=== PATIENT | male | born 1980 | race Caucasian/White ===

== ENCOUNTER 2018-08-16 13:14 | Inpatient (IN) ==
[2018-08-16] MEDS ORDERED: Succinylcholine Inj 200 MG/10 ML Vial ONE (13:15)
[2018-08-16] MEDS ORDERED: Etomidate Inj 40 MG/20 ML Vial IV.PUSH ONE (13:16)
[2018-08-16 13:29] VITALS: O2SAT 100
--- NOTE | 2018-08-16 13:39 | CT ---
EXAM DATE: 08/16/2018 1:25 PM EDT AGE/SEX: 38 years / Male INDICATIONS: Trauma, found unresponsive CLINICAL DATA: This is the patient's initial encounter. Patient reports that signs and symptoms have been present for 1 day and indicates a pain score of 10/10. MEDICAL/SURGICAL HISTORY: Non-responsive. Non-responsive. RADIATION DOSE: 56.35 CTDI (mGy) COMPARISON: No prior exams available for comparison. TECHNIQUE: CT of the head without contrast. Using automated exposure control and adjustment of the mA and/or kV according to patient size, radiation dose was kept as low as reasonably achievable to ob tain optimal diagnostic quality images. DICOM format image data is available electronically for revi ew and comparison. FINDINGS: There is a large acute high density intraparenchymal hemorrhage centered in the left frontal lobe camille suring up to 4.2 x 4.6 cm in diameter. There is extension into the intraventricular system with high density hemorrhage throughout the lateral ventricles, third ventricle and fourth ventricle. There is also subarachnoid hemorrhage over the left parietal convexities. There is dilatation of the ventricul ar system. There is mass effect and mild midline shift to the right measuring approximately 4 to 5 mm . The bone windows demonstrate no abnormality. CONCLUSION: 1. Large intraparenchymal hemorrhage intraventricular spread of hemorrhage and mild subarachnoid hem orrhage. Etiologies include middle cerebral artery aneurysm given the location of the hemorrhage. Findings called to Dr. Marquez in the emergency room at 1333 hours. Electronically signed by: Tien Mora MD 08/16/2018 1:37 PM EDT
--- NOTE | 2018-08-16 13:43 | CT ---
EXAM DATE: 08/16/2018 1:25 PM EDT AGE/SEX: 38 years / Male INDICATIONS: Trauma, Patient found unresponsive CLINICAL DATA: This is the patient's initial encounter. Patient reports that signs and symptoms have been present for 1 day and indicates a pain score of Nonresponsive. MEDICAL/SURGICAL HISTORY: Non-responsive. Non-responsive. RADIATION DOSE: 15.69 CTDI (mGy) COMPARISON: No prior exams available for comparison. TECHNIQUE: Contiguous axial images were obtained using helical multirow detector technique. The vol umetric data was post-processed with multiplanar reconstruction in oblique axial, sagittal, and coron al planes. Using automated exposure control and adjustment of the mA and/or kV according to patient s ize, radiation dose was kept as low as reasonably achievable to obtain optimal diagnostic quality viviana ges. DICOM format image data is available electronically for review and comparison. FINDINGS: Vertebrae: Normal vertebral body height. Discs: Disc spaces are well preserved in height. Alignment: Normal. No subluxation. The axial images demonstrate that the vertebral bodies and posterior elements are intact with no evid ence of fracture. Prevertebral soft tissues are within normal limits. The known ventricular hemorrhag e is partially visualized. CONCLUSION: 1. Negative trauma CT. 2. The known intraventricular hemorrhage is partially visualized. Please see head CT report for furt her details. Electronically signed by: Tien Mora MD 08/16/2018 1:41 PM EDT
[2018-08-16] MEDS ORDERED: fentaNYL Citrate Inj 100 MCG/2 ML Ampul IV.PUSH PRN (13:47)
[2018-08-16] MEDS ORDERED: Bisacodyl 10 MG Supp RECTAL PRN (13:47)
[2018-08-16] MEDS ORDERED: fentaNYL 10 mcg/mL Premix Drip 2,500 MCG/250 ML BAG IV.SIG PRN (13:47)
[2018-08-16] MEDS ORDERED: Acetaminophen 325 MG Tablet PO PRN (13:47)
[2018-08-16 13:54] LABS: Baso % (Auto) 0.1 % (0.0-2.0); Hematocrit 42.5 % (39.0-51.0); Hemoglobin 14.5 gm/dL (13.0-17.0); Lymph # (Auto) 0.9 th/mm3 (1.0-4.8); Lymph % (Auto) 3.4 % (9.0-44.0); Mean Corpuscular HGB Conc 34.1 % (32.0-36.0); Mean Platelet Volume 9.5 fL (7.0-11.0); Mono % (Auto) 7.7 % (0.0-8.0); Neut # (Auto) 23.1 th/mm3 (1.8-7.7); Neut % (Auto) 88.8 % (16.0-70.0); Platelet Count 234 th/mm3 (150-450); Red Cell Distribution Width 13.3 % (11.6-17.2); White Blood Count 26.1 th/mm3 (4.0-11.0)
[2018-08-16] MEDS ORDERED: ceFAZolin 2 GM Premix Inj 2 GM/50 ML PIGGYBACK IV.SIG ONE (13:56)
[2018-08-16] MEDS ORDERED: Thrombin Topical Soln 5,000 UNIT Vial TOPICAL ONE ×3 (13:56→14:53)
[2018-08-16] MEDS ORDERED: Gelatin Size 100 Topical Foam ONE (13:56)
[2018-08-16] MEDS ORDERED: Lidocaine 1%/Epinephrine 1:100,000 Inj 50 ML Vial ONE (13:57)
[2018-08-16] MEDS ORDERED: Bupivacaine/Epinephrine Inj 0.25% 50 ML Vial ONE (13:57)
--- NOTE | 2018-08-16 14:00 | ED ---
HPI General Chief complaint: Neuro Symptoms/Deficit Stated complaint: Medical Time Seen by Provider: 08/16/18 13:22 Limitations: altered mental status History of Present Illness HPI narrative: Patient 38-year-old male presents emergency department unresponsive with EMS, going to EMS the patient was complaining of a headache and then became unresponsive. By 10 they arrived on scene he was unresponsive. He was intubated by EMS on scene but he did not have a to recognizing a possible failure where he was extubated, transported with [id number] in process to assist ventilations. No other history is readily identifiable and the patient arrival due to his altered mental status. He did receive Narcan prior to arrival to a total of 1.2 mg, also had blood sugar checked which was elevated in the 200 range. Related Data Home Medications Medication Instructions Recorded Confirmed Unable to Obtain Home Meds 08/16/18 08/16/18 Allergies Allergy/AdvReac Type Severity Reaction Status Date / Time No Allergy Information Allergy Unverified 08/16/18 13:23 Available Review of Systems ROS Unobtainable ROS Unobtainable: unobtainable due to endotracheal tube and unobtainable due to mental status PMFSH Medical History Medical History Medical history unknown (Acute) Surgical history unknown (Acute) Social History Social History Substance History: Unable to Obtain Smoking Status: Unknown if ever smoked How Often Do You Have a Drink Containing Alcohol: Unable to Obtain Recent Travel in [facility] within the Last 8 Weeks: No Recent Out of Country Travel within the Last 8 Weeks: No Immunization History Tetanus Immunization: Unable to Assess Exam Narrative Exam Narrative: GENERAL: Well-developed well-nourished male, unconscious. SKIN: Focused skin assessment warm/dry. HEAD: Atraumatic. Normocephalic. EYES: Pupils are dilated to 9 mm, disconjugate gaze. ENT: No nasal bleeding or discharge. Mucous membranes pink and moist. NECK: Trachea midline. No JVD. CARDIOVASCULAR: Regular rate and rhythm. No murmur appreciated. RESPIRATORY: No accessory muscle use. Clear to auscultation. Breath sounds equal bilaterally. GASTROINTESTINAL: Abdomen soft, non-tender, nondistended. Hepatic and splenic margins not palpable. MUSCULOSKELETAL: No obvious deformities. No clubbing. No cyanosis. No edema. NEUROLOGICAL: Comatose, GCS of 4 with decerebrate posturing in bilateral upper extremities. Will not vocalize. Procedures Intubation Time Out Performed: No Sedative: etomidate Mg Given: 20 Paralytic: rocuronium Mg Given: 50 Laryngoscope: fiber optic video scope ET Tube Size: 8 ET Tube Uncuffed: No Tube Placement Confirmation: visualized tube passing through cords Patient Tolerated Procedure: well Intubation Complications: none Additional Comments: Patient tube was directly visualized passing between the cords with glide scope. Course Initial Documented Vital Signs Pulse Rate 89 08/16/18 13:16 Respiratory Rate 38 H 08/16/18 13:16 Blood Pressure 132/72 08/16/18 13:16 Pulse Oximetry 100 08/16/18 13:16 Last Documented Vital Signs Temperature 97.2 F L 08/17/18 08:00 Pulse Rate 109 H 08/17/18 09:00 Respiratory Rate 12 08/17/18 09:00 Blood Pressure 56/34 L 08/17/18 09:00 Pulse Oximetry 100 08/17/18 09:00 Critical Care Time Critical Care Time: Yes Total Critical Care Time: 35 Attestation: Aggregate critical care time was 35 minutes. Time to perform other separately billable procedures was not included in the critical care time. My time did not include minutes spent treating any other patients simultaneously or on activities that did not directly contribute to the patient's treatment. The services I provided to this patient were to treat and/or prevent clinically significant deterioration that could result in: , disability, organ failure I provided critical care services requiring my management, as noted below: Chart data review, documentation time, medication orders and management, vital sign assessments/reviewing monitor data, ordering and reviewing lab tests, ordering and interpreting/reviewing x-rays and diagnostic studies, care of the patient and discussion of the patient with the admitting physicians. Medical Decision Making MDM Narrative Medical decision making narrative: Patient 38-year-old male presents emergency department GCS of 4-5, decerebrate posturing, was intubated on arrival by Zara MS 4, was observed by me through glide scope passing through the cords, rushed to CAT scan showing left frontal hemorrhage, significant in size, extension of intraventricular spaces. Patient immediately discussed with Dr. Ramos, will be taken to the operating room. Then discussed with the patient's father Maria Isabel Martin [phone]. Patient recovering opiate addict, has been on Suboxone, no family history of aneurysms, he is not on anticoagulation. With Dr. Ramos was given 50 g of mannitol, hyperventilated and head of bed was elevated. We will go emergent to the operating room. Discussed with Dr. Silverio for admission Medical Screen Exam Complete: Yes Emergency Medical Condition: Yes Lab Data Result diagrams: 08/17/18 03:45 08/17/18 06:45 Lab Results 08/16/18 08/16/18 08/16/18 Range/Units 13:25 13:25 13:42 WBC 26.1 H (4.0-11.0) th/mm3 RBC 5.00 (4.50-5.90) mil/mm3 Hgb 14.5 (13.0-17.0) gm/dL Hct 42.5 (39.0-51.0) % MCV 85.0 (80.0-100.0) fL MCH 29.0 (27.0-34.0) pg MCHC 34.1 (32.0-36.0) % RDW 13.3 (11.6-17.2) % Plt Count 234 (150-450) th/mm3 MPV 9.5 (7.0-11.0) fL Neut % (Auto) 88.8 H (16.0-70.0) % Lymph % (Auto) 3.4 L (9.0-44.0) % [place] % (Auto) 7.7 (0.0-8.0) % Eos % (Auto) 0.0 (0.0-4.0) % Baso % (Auto) 0.1 (0.0-2.0) % Neut # (Auto) 23.1 H (1.8-7.7) th/mm3 Lymph # (Auto) 0.9 L (1.0-4.8) th/mm3 [place] # (Auto) 2.0 H (0.0-0.9) th/mm3 Eos # (Auto) 0.0 (0.0-0.4) th/mm3 Baso # (Auto) 0.0 (0.0-0.2) th/mm3 WBC Differential . Differential Comment Auto diff final PT (9.8-11.6) sec INR Ratio Puncture Site Patient Temperature O2 Saturation (90-100) % ABG pH (7.380-7.420) ABG pCO2 (38-42) mmHg ABG pO2 (61-120) mmHG ABG HCO3 (22-26) mmol/L ABG O2 Content (12.0-20.0) Vol % ABG Base Excess (-2-2) mmol/L ABG Methemoglobin (0-2) % Mehki Test Hemoglobin (12.0-16.0) G/DL Carboxyhemoglobin (0-4) % O2 Delivery Device Vent Setting Inspired O2 % Critical Value Sodium 141 (136-145) meq/L Potassium 3.7 (3.5-5.1) meq/L Chloride 109 H (98-107) meq/L Carbon Dioxide 22.8 (21.0-32.0) meq/L Anion Gap 9 (5-15) meq/L BUN 12 (7-18) mg/dL Creatinine 1.16 (0.60-1.30) mg/dL Estimated GFR 70 L (>89) mL/min Random Glucose 227 H (74-106) mg/dL Calcium 8.2 L (8.5-10.1) mg/dL Prot Corrected Calcium (8.5-10.1) mg/dL Phosphorus (2.5-4.9) mg/dL Magnesium 2.1 (1.5-2.5) mg/dL Total Bilirubin 0.6 (0.2-1.0) mg/dL AST 23 (15-37) U/L ALT 20 (12-78) U/L Alkaline Phosphatase 60 (45-117) U/L Ammonia (11-32) mcmol/L Troponin I 0.58 H (0.02-0.05) ng/mL Total Protein 7.1 (6.4-8.2) g/dL Albumin 4.0 (3.4-5.0) g/dL Urine Color (Yellw/Straw) Urine Clarity (Clear) Urine pH (5.0-8.5) Ur Specific [place] (1.002-1.035) Urine Protein (Neg-Trace) mg/dL Urine Glucose (UA) (Negative) mg/dL Urine Ketones (Negative) mg/dL Urine Occult Blood (Negative) Urine Nitrate (Negative) Urine Bilirubin (Negative) Urine Urobilinogen (Less than 2) mg/dL Ur Leukocyte Esterase (Negative) Urine RBC (0-3) /hpf Urine WBC (0-5) /hpf Urine Mucus (Occasional) /lpf Micro UA Comment Ur Microscopic Review Urine Culture Comments Nasal Screen MRSA (PCR) (Negative) Urine Opiates Screen Neg (Neg) Ur Barbiturates Screen Neg (Neg) Ur Amphetamines Screen Neg (Neg) U Benzodiazepines Scrn Pos H (Neg) Urine Cocaine Screen Neg (Neg) U Cannabinoids Screen Pos H (Neg) 08/16/18 08/16/18 08/16/18 Range/Units 13:42 13:46 15:08 WBC (4.0-11.0) th/mm3 RBC (4.50-5.90) mil/mm3 Hgb (13.0-17.0) gm/dL Hct (39.0-51.0) % MCV (80.0-100.0) fL MCH (27.0-34.0) pg MCHC (32.0-36.0) % RDW (11.6-17.2) % Plt Count (150-450) th/mm3 MPV (7.0-11.0) fL Neut % (Auto) (16.0-70.0) % Lymph % (Auto) (9.0-44.0) % [place] % (Auto) (0.0-8.0) % Eos % (Auto) (0.0-4.0) % Baso % (Auto) (0.0-2.0) % Neut # (Auto) (1.8-7.7) th/mm3 Lymph # (Auto) (1.0-4.8) th/mm3 [place] # (Auto) (0.0-0.9) th/mm3 Eos # (Auto) (0.0-0.4) th/mm3 Baso # (Auto) (0.0-0.2) th/mm3 WBC Differential Differential Comment PT (9.8-11.6) sec INR Ratio Puncture Site Drawn in or Patient Temperature 98.6 O2 Saturation 96 (90-100) % ABG pH 7.35 L (7.380-7.420) ABG pCO2 39 (38-42) mmHg ABG pO2 137 H (61-120) mmHG ABG HCO3 21 L (22-26) mmol/L ABG O2 Content 17.8 (12.0-20.0) Vol % ABG Base Excess -3.9 L (-2-2) mmol/L ABG Methemoglobin 1.5 (0-2) % [place] Test Present Hemoglobin 13.1 (12.0-16.0) G/DL Carboxyhemoglobin 1.2 (0-4) % O2 Delivery Device Or Vent Setting Inspired O2 % Critical Value No Sodium (136-145) meq/L Potassium (3.5-5.1) meq/L Chloride (98-107) meq/L Carbon Dioxide (21.0-32.0) meq/L Anion Gap (5-15) meq/L BUN (7-18) mg/dL Creatinine (0.60-1.30) mg/dL Estimated GFR (>89) mL/min Random Glucose (74-106) mg/dL Calcium (8.5-10.1) mg/dL Prot Corrected Calcium (8.5-10.1) mg/dL Phosphorus (2.5-4.9) mg/dL Magnesium (1.5-2.5) mg/dL Total Bilirubin (0.2-1.0) mg/dL AST (15-37) U/L ALT (12-78) U/L Alkaline Phosphatase (45-117) U/L Ammonia 24 (11-32) mcmol/L Troponin I (0.02-0.05) ng/mL Total Protein (6.4-8.2) g/dL Albumin (3.4-5.0) g/dL Urine Color Straw (Yellw/Straw) Urine Clarity Clear (Clear) Urine pH 6.0 (5.0-8.5) Ur Specific [place] 1.006 (1.002-1.035) Urine Protein Negative (Neg-Trace) mg/dL Urine Glucose (UA) 500 or greater (Negative) mg/dL Urine Ketones 20 (Negative) mg/dL Urine Occult Blood Negative (Negative) Urine Nitrate Negative (Negative) Urine Bilirubin Negative (Negative) Urine Urobilinogen Less than 2 (Less than 2) mg/dL Ur Leukocyte Esterase Negative (Negative) Urine RBC Less than 1 (0-3) /hpf Urine WBC 1 (0-5) /hpf Urine Mucus Few H (Occasional) /lpf Micro UA Comment Culture not ind Ur Microscopic Review Not Reportable Urine Culture Comments Culture not ind Nasal Screen MRSA (PCR) (Negative) Urine Opiates Screen (Neg) Ur Barbiturates Screen (Neg) Ur Amphetamines Screen (Neg) U Benzodiazepines Scrn (Neg) Urine Cocaine Screen (Neg) U Cannabinoids Screen (Neg) 08/16/18 08/16/18 08/16/18 Range/Units 16:30 16:35 19:45 WBC (4.0-11.0) th/mm3 RBC (4.50-5.90) mil/mm3 Hgb (13.0-17.0) gm/dL Hct (39.0-51.0) % MCV (80.0-100.0) fL MCH (27.0-34.0) pg MCHC (32.0-36.0) % RDW (11.6-17.2) % Plt Count (150-450) th/mm3 MPV (7.0-11.0) fL Neut % (Auto) (16.0-70.0) % Lymph % (Auto) (9.0-44.0) % [place] % (Auto) (0.0-8.0) % Eos % (Auto) (0.0-4.0) % Baso % (Auto) (0.0-2.0) % Neut # (Auto) (1.8-7.7) th/mm3 Lymph # (Auto) (1.0-4.8) th/mm3 [place] # (Auto) (0.0-0.9) th/mm3 Eos # (Auto) (0.0-0.4) th/mm3 Baso # (Auto) (0.0-0.2) th/mm3 WBC Differential Differential Comment PT 11.4 (9.8-11.6) sec INR 1.1 Ratio Puncture Site Patient Temperature O2 Saturation (90-100) % ABG pH (7.380-7.420) ABG pCO2 (38-42) mmHg ABG pO2 (61-120) mmHG ABG HCO3 (22-26) mmol/L ABG O2 Content (12.0-20.0) Vol % ABG Base Excess (-2-2) mmol/L ABG Methemoglobin (0-2) % [place] Test Hemoglobin (12.0-16.0) G/DL Carboxyhemoglobin (0-4) % O2 Delivery Device Vent Setting Inspired O2 % Critical Value Sodium 147 H (136-145) meq/L Potassium 4.5 D (3.5-5.1) meq/L Chloride 116 H (98-107) meq/L Carbon Dioxide 22.4 (21.0-32.0) meq/L Anion Gap 9 (5-15) meq/L BUN 9 (7-18) mg/dL Creatinine 0.84 (0.60-1.30) mg/dL Estimated GFR Greater than 89 (>89) mL/min Random Glucose 138 H (74-106) mg/dL Calcium 7.3 L* D (8.5-10.1) mg/dL Prot Corrected Calcium 8.1 L (8.5-10.1) mg/dL Phosphorus (2.5-4.9) mg/dL Magnesium 2.4 (1.5-2.5) mg/dL Total Bilirubin 0.8 (0.2-1.0) mg/dL AST 29 (15-37) U/L ALT 18 (12-78) U/L Alkaline Phosphatase 49 (45-117) U/L Ammonia (11-32) mcmol/L Troponin I (0.02-0.05) ng/mL Total Protein 5.7 L D (6.4-8.2) g/dL Albumin 3.3 L D (3.4-5.0) g/dL Urine Color (Yellw/Straw) Urine Clarity (Clear) Urine pH (5.0-8.5) Ur Specific [place] (1.002-1.035) Urine Protein (Neg-Trace) mg/dL Urine Glucose (UA) (Negative) mg/dL Urine Ketones (Negative) mg/dL Urine Occult Blood (Negative) Urine Nitrate (Negative) Urine Bilirubin (Negative) Urine Urobilinogen (Less than 2) mg/dL Ur Leukocyte Esterase (Negative) Urine RBC (0-3) /hpf Urine WBC (0-5) /hpf Urine Mucus (Occasional) /lpf Micro UA Comment Ur Microscopic Review Urine Culture Comments Nasal Screen MRSA (PCR) Not detected (Negative) Urine Opiates Screen (Neg) Ur Barbiturates Screen (Neg) Ur Amphetamines Screen (Neg) U Benzodiazepines Scrn (Neg) Urine Cocaine Screen (Neg) U Cannabinoids Screen (Neg) 08/16/18 08/17/18 08/17/18 Range/Units 21:15 03:45 03:45 WBC 23.8 H (4.0-11.0) th/mm3 RBC 4.95 (4.50-5.90) mil/mm3 Hgb 14.3 (13.0-17.0) gm/dL Hct 41.9 (39.0-51.0) % MCV 84.5 (80.0-100.0) fL MCH 28.8 (27.0-34.0) pg MCHC 34.1 (32.0-36.0) % RDW 13.7 (11.6-17.2) % Plt Count 221 (150-450) th/mm3 MPV 9.6 (7.0-11.0) fL Neut % (Auto) 90.2 H (16.0-70.0) % Lymph % (Auto) 1.8 L (9.0-44.0) % [place] % (Auto) 7.9 (0.0-8.0) % Eos % (Auto) 0.0 (0.0-4.0) % Baso % (Auto) 0.1 (0.0-2.0) % Neut # (Auto) 21.4 H (1.8-7.7) th/mm3 Lymph # (Auto) 0.4 L (1.0-4.8) th/mm3 [place] # (Auto) 1.9 H (0.0-0.9) th/mm3 Eos # (Auto) 0.0 (0.0-0.4) th/mm3 Baso # (Auto) 0.0 (0.0-0.2) th/mm3 WBC Differential . Differential Comment Auto diff final PT 11.3 (9.8-11.6) sec INR 1.1 Ratio Puncture Site Art line Patient Temperature 98.6 O2 Saturation 99 (90-100) % ABG pH 7.35 L (7.380-7.420) ABG pCO2 37 L (38-42) mmHg ABG pO2 315 H (61-120) mmHG ABG HCO3 20 L (22-26) mmol/L ABG O2 Content 20.9 H (12.0-20.0) Vol % ABG Base Excess -4.6 L (-2-2) mmol/L ABG Methemoglobin 0.6 (0-2) % [place] Test Hemoglobin 14.5 (12.0-16.0) G/DL Carboxyhemoglobin 0.4 (0-4) % O2 Delivery Device Ventilator Vent Setting See comments Inspired O2 100 % Critical Value No Sodium (136-145) meq/L Potassium (3.5-5.1) meq/L Chloride (98-107) meq/L Carbon Dioxide (21.0-32.0) meq/L Anion Gap (5-15) meq/L BUN (7-18) mg/dL Creatinine (0.60-1.30) mg/dL Estimated GFR (>89) mL/min Random Glucose (74-106) mg/dL Calcium (8.5-10.1) mg/dL Prot Corrected Calcium (8.5-10.1) mg/dL Phosphorus (2.5-4.9) mg/dL Magnesium (1.5-2.5) mg/dL Total Bilirubin (0.2-1.0) mg/dL AST (15-37) U/L ALT (12-78) U/L Alkaline Phosphatase (45-117) U/L Ammonia (11-32) mcmol/L Troponin I (0.02-0.05) ng/mL Total Protein (6.4-8.2) g/dL Albumin (3.4-5.0) g/dL Urine Color (Yellw/Straw) Urine Clarity (Clear) Urine pH (5.0-8.5) Ur Specific [place] (1.002-1.035) Urine Protein (Neg-Trace) mg/dL Urine Glucose (UA) (Negative) mg/dL Urine Ketones (Negative) mg/dL Urine Occult Blood (Negative) Urine Nitrate (Negative) Urine Bilirubin (Negative) Urine Urobilinogen (Less than 2) mg/dL Ur Leukocyte Esterase (Negative) Urine RBC (0-3) /hpf Urine WBC (0-5) /hpf Urine Mucus (Occasional) /lpf Micro UA Comment Ur Microscopic Review Urine Culture Comments Nasal Screen MRSA (PCR) (Negative) Urine Opiates Screen (Neg) Ur Barbiturates Screen (Neg) Ur Amphetamines Screen (Neg) U Benzodiazepines Scrn (Neg) Urine Cocaine Screen (Neg) U Cannabinoids Screen (Neg) 08/17/18 08/17/18 Range/Units 05:58 06:45 WBC (4.0-11.0) th/mm3 RBC (4.50-5.90) mil/mm3 Hgb (13.0-17.0) gm/dL Hct (39.0-51.0) % MCV (80.0-100.0) fL MCH (27.0-34.0) pg MCHC (32.0-36.0) % RDW (11.6-17.2) % Plt Count (150-450) th/mm3 MPV (7.0-11.0) fL Neut % (Auto) (16.0-70.0) % Lymph % (Auto) (9.0-44.0) % [place] % (Auto) (0.0-8.0) % Eos % (Auto) (0.0-4.0) % Baso % (Auto) (0.0-2.0) % Neut # (Auto) (1.8-7.7) th/mm3 Lymph # (Auto) (1.0-4.8) th/mm3 [place] # (Auto) (0.0-0.9) th/mm3 Eos # (Auto) (0.0-0.4) th/mm3 Baso # (Auto) (0.0-0.2) th/mm3 WBC Differential Differential Comment PT (9.8-11.6) sec INR Ratio Puncture Site Art line Patient Temperature 98.6 O2 Saturation 99 (90-100) % ABG pH 7.32 L (7.380-7.420) ABG pCO2 41 (38-42) mmHg ABG pO2 359 H (61-120) mmHG ABG HCO3 20 L (22-26) mmol/L ABG O2 Content 19.0 (12.0-20.0) Vol % ABG Base Excess -4.9 L (-2-2) mmol/L ABG Methemoglobin 0.7 (0-2) % [place] Test Hemoglobin 13.1 (12.0-16.0) G/DL Carboxyhemoglobin 0.3 (0-4) % O2 Delivery Device Ventilator Vent Setting See comments Inspired O2 100 % Critical Value No Sodium 162 H* D (136-145) meq/L Potassium 5.2 H (3.5-5.1) meq/L Chloride 136 H D (98-107) meq/L Carbon Dioxide 21.7 (21.0-32.0) meq/L Anion Gap 4 L (5-15) meq/L BUN 11 (7-18) mg/dL Creatinine 1.38 H (0.60-1.30) mg/dL Estimated GFR 58 L (>89) mL/min Random Glucose 167 H (74-106) mg/dL Calcium 7.9 L (8.5-10.1) mg/dL Prot Corrected Calcium (8.5-10.1) mg/dL Phosphorus 1.4 L (2.5-4.9) mg/dL Magnesium 2.8 H (1.5-2.5) mg/dL Total Bilirubin (0.2-1.0) mg/dL AST (15-37) U/L ALT (12-78) U/L Alkaline Phosphatase (45-117) U/L Ammonia (11-32) mcmol/L Troponin I (0.02-0.05) ng/mL Total Protein (6.4-8.2) g/dL Albumin (3.4-5.0) g/dL Urine Color (Yellw/Straw) Urine Clarity (Clear) Urine pH (5.0-8.5) Ur Specific [place] (1.002-1.035) Urine Protein (Neg-Trace) mg/dL Urine Glucose (UA) (Negative) mg/dL Urine Ketones (Negative) mg/dL Urine Occult Blood (Negative) Urine Nitrate (Negative) Urine Bilirubin (Negative) Urine Urobilinogen (Less than 2) mg/dL Ur Leukocyte Esterase (Negative) Urine RBC (0-3) /hpf Urine WBC (0-5) /hpf Urine Mucus (Occasional) /lpf Micro UA Comment Ur Microscopic Review Urine Culture Comments Nasal Screen MRSA (PCR) (Negative) Urine Opiates Screen (Neg) Ur Barbiturates Screen (Neg) Ur Amphetamines Screen (Neg) U Benzodiazepines Scrn (Neg) Urine Cocaine Screen (Neg) U Cannabinoids Screen (Neg) Imaging Data Radiologist's impression: Chest X-Ray 08/16/18 00:00 CONCLUSION: Minimal left basilar opacity which may represent atelectasis. Endotracheal tube in good position. Cervical Spine CT 08/16/18 13:23 CONCLUSION: 1. Negative trauma CT. 2. The known intraventricular hemorrhage is partially visualized. Please see head CT report for further details. Head CT 08/16/18 13:23 CONCLUSION: 1. Large intraparenchymal hemorrhage intraventricular spread of hemorrhage and mild subarachnoid hemorrhage. Etiologies include middle cerebral artery aneurysm given the location of the hemorrhage. Findings called to Dr. Marquez in the emergency room at 1333 hours. Discharge Plan Discharge Disposition Patient Disposition: 30 Still Patient Discharge Condition Condition: Critical Discharge Details Diagnosis: Intracranial hemorrhage, Subarachnoid hemorrhage, Coma Date/Time: 08/17/18 11:04 Physicians Team ED Provider: Antonio Marquez Primary Care Provider: UNKNOWN, Attending Provider: Raza Alberto Other Providers: Caesar Ramos Discharge Interventions Interventions: ED Discharge Assessment Last Done: 08/16/18 14:35 Status ED Status: Left Department Discharge Information Discharge Date/Time: 08/16/18 14:37
[2018-08-16] MEDS ORDERED: Dextrose 5%/NaCl 0.45% Inj 500 ML IV.CONT ONE (14:09)
[2018-08-16] MEDS ORDERED: Phenylephrine/NS 1000 MCG/10ML Syringe IV.PUSH ONE (14:09)
[2018-08-16] MEDS ORDERED: Sod Chloride 0.9% Inj 1,000 ML IV.CONT ONE (14:09)
[2018-08-16 14:10] LABS: Amphetamine Screen,Urine Neg (Neg); Barbiturate Screen,Urine Neg (Neg); Bilirubin,Urine Negative (Negative); Cannabinoid Screen,Urine Pos (Neg); Clarity,Urine Clear (Clear); Cocaine Screen,Urine Neg (Neg); Color,Urine Straw (Yellw/Straw); Glucose,Urine (UA) 500 or Greater mg/dL (Negative); Leukocyte Esterase,Urine Negative (Negative); Mucus,Urine Few /lpf (Occasional); Nitrite,Urine Negative (Negative); Opiate Screen,Urine Neg (Neg); Specific Gravity,Urine 1.006 (1.002-1.035)
[2018-08-16 14:12] LABS: Anion Gap 9 meq/L (5-15); Aspartate Aminotransferase 23 U/L (15-37); Blood Urea Nitrogen 12 mg/dL (7-18); Calcium 8.2 mg/dL (8.5-10.1); Carbon Dioxide 22.8 meq/L (21.0-32.0); Chloride 109 meq/L (98-107); Glomerular Filtration Rate 70 mL/min (>89); Glucose,Random 227 mg/dL (74-106); Magnesium 2.1 mg/dL (1.5-2.5); Potassium 3.7 meq/L (3.5-5.1); Sodium 141 meq/L (136-145)
[2018-08-16 14:17] LABS: Alanine Aminotransferase 20 U/L (12-78); Alkaline Phosphatase 60 U/L (45-117); Total Protein 7.1 g/dL (6.4-8.2); Troponin I 0.58 ng/mL (0.02-0.05)
[2018-08-16] MEDS ORDERED: Propofol Inj 500 MG/50 ML Vial ONE ×2 (15:25→16:03)
[2018-08-16 15:28] LABS: ABG Base Excess -3.9 mmol/L (-2-2); ABG PCO2 39 mmHg (38-42); ABG PO2 137 mmHG (61-120)
[2018-08-16] MEDS ORDERED: levETIRAcetam 1000mg/100mL Inj 100 ML IV.SIG ONE (16:00)
--- NOTE | 2018-08-16 16:38 | P.CONNS ---
History of Present Illness Primary Care Provider: UNKNOWN History of Present Illness: 38yoM with headache, found unresponsive slumped over in his truck around noon today, last seen normal ~2 Hours prior. Complained of a severe headache few days prior. Otherwise healthy. GCS 4 outside, by the time of arrival here 1:15 , no gag, pupils 7mm fixed and dilated. Head CT showing large left frontal hemorrhage 4x5cm with IVH. Taken emergently to OR for clot evacuation but intraop brain kept swelling and hemorrhage continued. EVD placed but clotted off. Closed and transferred back to ICU. Discussed poor prognosis with family. Pupils now 9mm and nonreactive, no brainstem reflexes. [facility] - History History Provided By: Patient - Medical History Medical History: Medical History (Last Updated 08/16/18 @ 13:22 by Anastasiia Abarca RN) Medical history unknown Surgical history unknown - Tobacco History Smoking Status: Unknown if ever smoked - Alcohol History How Often Do You Have a Drink Containing Alcohol: Unable to Obtain - Substance Use History Substance History: Unable to Obtain - Travel History Recent Travel in the [place] Within the Last 8 Weeks: No Recent Travel Out of the Country Within the Last 8 Weeks: No - Immunization History Tetanus Immunization: Unable to Assess Medications and Allergies Active Medications: Active Medications Acetaminophen (Tylenol) 650 mg PO Q6H PRN PRN Reason: PAIN 1-10 AND/OR FEVER >101F Al Hydroxide/Mg Hydroxide (Milk Of Magnalmas Liq) 30 ml PO Q12H PRN PRN Reason: Mild Constipation Albuterol (Duoneb Neb (Prn)) 1 ampul NEB Q2HR NEB PRN PRN Reason: WHEEZING Bisacodyl (Dulcolax Supp) 10 mg RECTAL DAILY PRN PRN Reason: SEVERE CONSITIPATION Chlorhexidine Gluconate (Peridex 0.12% Oral Kit) 15 ml OROPHARYNG BID@0800, 2000 [facility] Chlorhexidine Gluconate (Chlorhexidine 2% Cloth) 3 pack TOPICAL DAILY@0400 [facility] Stop: 08/22/18 03:59 Chlorhexidine Gluconate (Chlorhexidine 2% Cloth) 3 pack TOPICAL DAILY@0400 PRN PRN Reason: Extra cloth needed Stop: 08/22/18 03:59 Famotidine (Pepcid Pf Inj) 20 mg IV.PUSH Q12HR [facility] Fentanyl Citrate (Fentanyl Inj) 100 mcg IV.PUSH Q1H PRN PRN Reason: ICP > 20 Fentanyl (Fentanyl 10 Mcg/Ml Premix Drip) 2,500 mcg in 250 mls @ 5 mls/hr IV.SIG TITRATE PRN; Protocol PRN Reason: Per Protocol Propofol (Diprivan 1000 Mg/100 Ml Inj) 1,000 mg in 100 mls @ 0 mls/hr IV.CONT TITRATE PRN; Protocol PRN Reason: Per Protocol Levetiracetam 500 mg/ Sodium (Chloride) 105 mls @ 400 mls/hr IV.SIG Q12H [facility] Lactulose (Lactulose Liq) 30 ml PO DAILY PRN PRN Reason: SEVERE CONSITIPATION Miscellaneous Medication () 1 each OROPHARYNG 0000,0400,1200,1600 [facility] Ondansetron HCl (Zofran Inj) 4 mg IV.PUSH Q6H PRN PRN Reason: NAUSEA OR VOMITING Senna/Docusate Sodium (Candi-Colace) 1 tab PO BID [facility] Sennosides (Senokot) 17.2 mg PO Q12H PRN PRN Reason: Moderate Constipation Sodium Chloride (Ns Flush) 2 ml IV.FLUSH PRN PRN PRN Reason: FLUSH AFTER USING IV ACCESS Sodium Chloride (Ns Flush) 2 ml IV.FLUSH BID [facility] Sodium Chloride (Ns Flush) 2 ml IV.FLUSH PRN PRN PRN Reason: FLUSH AFTER USING IV ACCESS Allergies Allergy/AdvReac Type Severity Reaction Status Date / Time No Allergy Information Allergy Unverified 08/16/18 13:23 Available Home Medications Medication Instructions Recorded Confirmed Type Unable to Obtain Home Meds 08/16/18 08/16/18 History Exam Vital signs: Vital Signs 08/16/18 13:16 08/16/18 13:19 08/16/18 13:21 Temperature Pulse Rate 89 88 Respiratory Rate 38 H 16 23 Blood Pressure 132/72 127/73 Pulse Oximetry 100 100 100 08/16/18 13:22 08/16/18 13:23 08/16/18 13:40 Temperature Pulse Rate 67 64 Respiratory Rate 30 H 16 Blood Pressure 113/66 156/87 H Pulse Oximetry 100 100 100 08/16/18 13:44 08/16/18 16:31 Temperature 97.9 F Pulse Rate Respiratory Rate 18 Blood Pressure Pulse Oximetry 100 Intake & Output 1008/16/18 08/16/18 18:59 06:59 18:59 Output Total 1000 / 1000 Balance -1000 / -1000 Output: Urine Amount (Catheter) 1000 / 1000 Indwelling Urethral Catheter 1000 / 1000 Results - Laboratory Findings CBC and BMP: 08/16/18 13:25 08/16/18 13:25 Abnormal lab findings: Abnormal Labs 08/16/18 08/16/18 08/16/18 13:25 13:25 13:42 WBC 26.1 H Neut % (Auto) 88.8 H Lymph % (Auto) 3.4 L Neut # (Auto) 23.1 H Lymph # (Auto) 0.9 L Lynn # (Auto) 2.0 H ABG pH ABG pO2 ABG HCO3 ABG Base Excess Chloride 109 H Estimated GFR 70 L Random Glucose 227 H Calcium 8.2 L Troponin I 0.58 H Urine Mucus U Benzodiazepines Scrn Pos H U Cannabinoids Screen Pos H 08/16/18 08/16/18 13:42 15:08 WBC Neut % (Auto) Lymph % (Auto) Neut # (Auto) Lymph # (Auto) Lynn # (Auto) ABG pH 7.35 L ABG pO2 137 H ABG HCO3 21 L ABG Base Excess -3.9 L Chloride Estimated GFR Random Glucose Calcium Troponin I Urine Mucus Few H U Benzodiazepines Scrn U Cannabinoids Screen Assessment and Plan - Plan 38yoM with terminal left frontal IPH w/ IVH. Source possible AVM or aneurysm. Plan: Discussed extensively with patient's father and aunt. Waiting for his sister from [place]. They understand the gravity of the situation and that machines are keeping him alive. They understand they may need to make some decisions in the coming hours regarding life support.
[2018-08-16] MEDS: Oral Hygiene Kit OROPHARYNG SCH ×2 (16:41→23:42)
--- NOTE | 2018-08-16 16:43 | P.HPCC ---
History of Present Illness Service: Critical care medicine Primary Care Physician: UNKNOWN Chief Complaint: Headache, unresponsive History of Present Illness: This otherwise healthy 38-year-old gentleman complained of a headache earlier today by phone. By the time EMS had arrived he was unresponsive and required intubation and mechanical ventilation. On arrival to the emergency department he had a very large left hemispheric intraparenchymal hemorrhage with some subarachnoid blood as well. Both pupils were dilated to 8 mm and unresponsive. The patient was taken to the operating room emergently with impending herniation. I saw him in the emergency department and met him again on his arrival from the OR to the intensive care unit. He is undergone decompression of the left hemispheric bleed and a cranial flap is been removed. Because of active bleeding extending to both ventricles and intra ventricular drainage device was not placed for fear it would just clot off immediately. Active bleeding continues and the patient likely has an aneurysm or an arteriovenous malformation. He is far too unstable at this point to undergo CT angiography of the cerebral vessels. I spoke extensively with the neurosurgeon and with his parents at the bedside. They appreciate that his neurologic status was severely diminished on arrival to the hospital and that his likelihood of survival from this acute bleed is markedly low. - Diagnosis (1) Intracranial hemorrhage (2) Encephalopathy acute (3) Acute respiratory failure Inpatient Certification: I certify that the inpatient services were ordered in accordance with Medicare regulations governing the order. This includes certification that hospital inpatient services are reasonable and necessary and in the case of services not specified as inpatient-only under 42 CFR 419.22(n), that they are appropriately provided as inpatient services in accordance to with the 2-midnight benchmark under 43 CFR 412.3(e) Estimated Total Length of Stay (Days): 7 Plans for Post Hospital Care: Other acute care hospital Review of Systems Headache prior to loss of consciousness. PMF[facility] - History History Provided By: Patient - Medical History Medical History: Medical History (Last Updated 08/16/18 @ 13:22 by Anastasiia Abarca RN) Medical history unknown Surgical history unknown - Tobacco History Smoking Status: Unknown if ever smoked - Alcohol History How Often Do You Have a Drink Containing Alcohol: Unable to Obtain - Substance Use History Substance History: Unable to Obtain - Travel History Recent Travel in the [place] Within the Last 8 Weeks: No Recent Travel Out of the Country Within the Last 8 Weeks: No - Immunization History Tetanus Immunization: Unable to Assess Medications and Allergies Active Medications: Active Medications Acetaminophen (Tylenol) 650 mg PO Q6H PRN PRN Reason: PAIN 1-10 AND/OR FEVER >101F Al Hydroxide/Mg Hydroxide (Milk Of Magnesia Liq) 30 ml PO Q12H PRN PRN Reason: Mild Constipation Albuterol (Duoneb Neb (Prn)) 1 ampul NEB Q2HR NEB PRN PRN Reason: WHEEZING Bisacodyl (Dulcolax Supp) 10 mg RECTAL DAILY PRN PRN Reason: SEVERE CONSITIPATION Chlorhexidine Gluconate (Peridex 0.12% Oral Kit) 15 ml OROPHARYNG BID@0800, 2000 [facility] Chlorhexidine Gluconate (Chlorhexidine 2% Cloth) 3 pack TOPICAL DAILY@0400 [facility] Stop: 08/22/18 03:59 Chlorhexidine Gluconate (Chlorhexidine 2% Cloth) 3 pack TOPICAL DAILY@0400 PRN PRN Reason: Extra cloth needed Stop: 08/22/18 03:59 Famotidine (Pepcid Pf Inj) 20 mg IV.PUSH Q12HR [facility] Fentanyl Citrate (Fentanyl Inj) 100 mcg IV.PUSH Q1H PRN PRN Reason: ICP > 20 Fentanyl (Fentanyl 10 Mcg/Ml Premix Drip) 2,500 mcg in 250 mls @ 5 mls/hr IV.SIG TITRATE PRN; Protocol PRN Reason: Per Protocol Propofol (Diprivan 1000 Mg/100 Ml Inj) 1,000 mg in 100 mls @ 0 mls/hr IV.CONT TITRATE PRN; Protocol PRN Reason: Per Protocol Levetiracetam 500 mg/ Sodium (Chloride) 105 mls @ 400 mls/hr IV.SIG Q12H [facility] Lactulose (Lactulose Liq) 30 ml PO DAILY PRN PRN Reason: SEVERE CONSITIPATION Miscellaneous Medication () 1 each OROPHARYNG 0000,0400,1200,1600 [facility] Ondansetron HCl (Zofran Inj) 4 mg IV.PUSH Q6H PRN PRN Reason: NAUSEA OR VOMITING Senna/Docusate Sodium (Candi-Colace) 1 tab PO BID [facility] Sennosides (Senokot) 17.2 mg PO Q12H PRN PRN Reason: Moderate Constipation Sodium Chloride (Ns Flush) 2 ml IV.FLUSH PRN PRN PRN Reason: FLUSH AFTER USING IV ACCESS Sodium Chloride (Ns Flush) 2 ml IV.FLUSH BID [facility] Sodium Chloride (Ns Flush) 2 ml IV.FLUSH PRN PRN PRN Reason: FLUSH AFTER USING IV ACCESS Allergies Allergy/AdvReac Type Severity Reaction Status Date / Time No Allergy Information Allergy Unverified 08/16/18 13:23 Available Home Medications Medication Instructions Recorded Confirmed Type Unable to Obtain Home Meds 08/16/18 08/16/18 History Results - Labs CBC & Chem 7: 08/17/18 03:45 08/16/18 16:35 Labs: Short CBC 08/16/18 Range/Units 13:25 WBC 26.1 H (4.0-11.0) th/mm3 Hgb 14.5 (13.0-17.0) gm/dL Hct 42.5 (39.0-51.0) % Plt Count 234 (150-450) th/mm3 BMP 08/16/18 13:25 Sodium 141 Potassium 3.7 Chloride 109 H Carbon Dioxide 22.8 BUN 12 Creatinine 1.16 Calcium 8.2 L Cardiac Enzymes 08/16/18 Range/Units 13:25 Troponin I 0.58 H (0.02-0.05) ng/mL Liver Function 08/16/18 Range/Units 13:25 Total Bilirubin 0.6 (0.2-1.0) mg/dL AST 23 (15-37) U/L ALT 20 (12-78) U/L Alkaline Phosphatase 60 (45-117) U/L Albumin 4.0 (3.4-5.0) g/dL Urine 08/16/18 Range/Units 13:42 Urine Color Straw (Yellw/Straw) Urine Clarity Clear (Clear) Urine pH 6.0 (5.0-8.5) Ur Specific Anza 1.006 (1.002-1.035) Urine Protein Negative (Neg-Trace) mg/dL Urine Glucose (UA) 500 or greater (Negative) mg/dL - Imaging Impressions Cervical Spine CT 08/16/18 13:23 CONCLUSION: 1. Negative trauma CT. 2. The known intraventricular hemorrhage is partially visualized. Please see head CT report for further details. Head CT 08/16/18 13:23 CONCLUSION: 1. Large intraparenchymal hemorrhage intraventricular spread of hemorrhage and mild subarachnoid hemorrhage. Etiologies include middle cerebral artery aneurysm given the location of the hemorrhage. Findings called to Dr. Marquez in the emergency room at 1333 hours. Exam Vital signs: Vital Signs 08/16/18 13:16 08/16/18 13:19 08/16/18 13:21 Temperature Pulse Rate 89 88 Respiratory Rate 38 H 16 23 Blood Pressure 132/72 127/73 Pulse Oximetry 100 100 100 08/16/18 13:22 08/16/18 13:23 08/16/18 13:40 Temperature Pulse Rate 67 64 Respiratory Rate 30 H 16 Blood Pressure 113/66 156/87 H Pulse Oximetry 100 100 100 08/16/18 13:44 Temperature 97.9 F Pulse Rate Respiratory Rate Blood Pressure Pulse Oximetry Intake & Output 08/15/18 08/16/18 08/16/18 18:59 06:59 18:59 Output Total 1000 / 1000 Balance -1000 / -1000 Output: Urine Amount (Catheter) 1000 / 1000 Indwelling Urethral Catheter 1000 / 1000 Narrative: From emergency department examination General: Unresponsive, intubated, mechanically ventilated Head: Atraumatic, normal Neck: Supple, oral tracheal intubation Lungs: Clear bilaterally without wheezes or crackles, good bilateral air entry with ventilator breaths Heart: Regular rate and rhythm, normal S1-S2, no JVD Abdomen: Soft, nondistended, no guarding quiet Extremities: Tepid, well-perfused. Skin: Pale Neuro: Pupils 8 mm, unresponsive bilaterally. Minimal cough reflex, no gag reflex. Posturing to noxious stimulation, no spontaneous movement. Does not breathe over vent. Caprini VTE Risk Assessment Caprini VTE Risk Assessment: Moderate/High Risk (score >= 2) VTE Pharmacological Exception Reason: Hemorrhage Caprini Risk Assessment Model: Point Value = 1 Point Value = 2 Point Value = 3 Point Value = 5 Age 41-60 Minor surgery BMI > 25 kg/m2 Swollen legs Varicose veins or History of unexplained or recurrent spontaneous Oral contraceptives or hormone replacement Sepsis (< 1 month) Serious lung disease, including pneumonia (< 1 month) Abnormal pulmonary function Acute myocardial infarction Congestive heart failure (< 1 month) History of inflammatory bowel disease Medical patient at bed rest Age 61-74 Arthroscopic surgery Major open surgery (> 45 min) Laparoscopic surgery (> 45 min) Malignancy Confined to bed (> 72 hours) Immobilizing plaster cast Central venous access Age >= 75 History of VTE Family history of VTE Factor V Leiden Prothrombin [id number] Lupus anticoagulant Anticardiolipin antibodies Elevated serum homocysteine Heparin-induced thrombocytopenia Other congenital or acquired thrombophilia Stroke (< 1 month) Elective arthroplasty Hip, pelvis, or leg fracture Acute spinal cord injury (< 1 month) Prophylaxis Regimen: Total Risk Factor Score Risk Level Prophylaxis Regimen 0-1 Low Early ambulation 2 Moderate Order ONE of the following: *Sequential Compression Device (SCD) *Heparin 5000 units SQ BID 3-4 Higher Order ONE of the following medications: *Heparin 5000 units SQ TID *Enoxaparin/Lovenox 40 mg SQ daily (WT < 150 kg, CrCl > 30 mL/min) *Enoxaparin/Lovenox 30 mg SQ daily (WT < 150 kg, CrCl > 10-29 mL/min) *Enoxaparin/Lovenox 30 mg SQ BID (WT < 150 kg, CrCl > 30 mL/min) AND/OR *Sequential Compression Device (SCD) 5 or more Highest Order ONE of the following medications: *Heparin 5000 units SQ TID (Preferred with Epidurals) *Enoxaparin/Lovenox 40 mg SQ daily (WT < 150 kg, CrCl > 30 mL/min) *Enoxaparin/Lovenox 30 mg SQ daily (WT < 150 kg, CrCl > 10-29 mL/min) *Enoxaparin/Lovenox 30 mg SQ BID (WT < 150 kg, CrCl > 30 mL/min) AND *Sequential Compression Device (SCD) Assessment and Plan - Problem List (1) Intracranial hemorrhage Code(s): I62.9 - Nontraumatic intracranial hemorrhage, unspecified Status: Acute (2) Encephalopathy acute Code(s): G93.40 - Encephalopathy, unspecified Status: Acute (3) Acute respiratory failure Code(s): J96.00 - Acute respiratory failure, unspecified whether with hypoxia or hypercapnia Status: Acute - Assessment and Plan Plan: Neuro -neuro checks every 15 minutes -Concentrate serum sodium, try to keep osmolality greater than 300 -Head of bed up 45 degrees -Keppra seizure prophylaxis -Serial sodium determination -Notified trans-life of patient condition -Start 2% saline, and attempt to keep serum sodium in the [id number] range Respiratory -PRVC ventilator mode -Maintain end-tidal carbon dioxide at low level of normal -Check chest x-ray to confirm position of ET tube -> good position. -Arterial blood gas -Bronchodilators as needed bronchospasm Cardiovascular -Vasopressors to maintain cerebral perfusion pressure greater than 60 -Avoid profound hypertension -Check potassium following active osmotic diuresis -Because of bradycardia will initiate dopamine and discontinue phenylephrine GI -Nasogastric tube to low intermittent suction -N.p.o. -Kaufman required for hourly output determination -Watch for diabetes insipidus Hematology -Check coagulation profile ID -Culture for fevers -Usual perioperative prophylaxis coverage Prophylaxis -Chemical DVT prophylaxis contraindicated. -SCDs -Pepcid IV twice daily Overall impression: This gentleman remains critically ill and unstable. He arrived to the emergency department with a catastrophic intracranial hemorrhage and attempts have been undertaken to prevent impending brain herniation. He appears to have sustained a devastating neurologic injury prior to admission and although decompressed remains at very high risk for ongoing bleeding and swelling. His prognosis is guarded and the family has been informed that it is very unlikely that he can survive this injury. Critical care time 65 minutes aside from procedures.
--- NOTE | 2018-08-16 16:45 | P.OP ---
Preoperative Diagnosis: hemorrhagic stroke Postoperative Diagnosis: same Date of procedure: 08/16/18 Procedure: Left frontal craniectomy, evacuation of clot, attempted EVD Surgeon: Caesar Ramos MD Operation and Findings: 38yoM with extensive L frontal hemorrhage and IVH and elevated ICP. Description: Patient brought to Main OR. He had already been given 50gm of Mannitol and was hyperventilated. Pupils remained nonreactive. Bifrontal scalp clipped and draped in usual sterile fashion. Curvilinear incision infiltrated then opened sharply. Tiffany clips applied to wound edges. Perforate obtained burrhole at keyhole, then footplate used to fashion a left frontal craniectomy. Left EVD placed from Olivia's point with return of clot initially. Left frontal clot came to surface and this was opened and evacuated. However, bleeding still arose from skull base and clot was dissected deep to attempt to localize source. Thrombin gelfoam, surgiflow used for hemostasis in multiple rounds and bleeding slowed down but brain swelling increased and herniation was impending. Decision to remove nonfunctioning EVD and close given futility of attempts to mitigate elevated ICP and brain swelling. Closure of primary flap with running 2-0 Prolene, followed by sterile dressings and transfer back to ICU. Grave prognosis d/w family and Dr. Ann. They are awaiting another family member to arrive from a few hours away.
--- NOTE | 2018-08-16 16:55 | XR ---
EXAM DATE: 08/16/2018 12:00 AM EDT AGE/SEX: 38 years / Male INDICATIONS: ET tube placement. CLINICAL DATA: This is the patient's subsequent encounter. Patient reports that signs and symptoms h ave been present for 2 days and indicates a pain score of Nonresponsive. MEDICAL/SURGICAL HISTORY: Non-responsive. Craniotomy. COMPARISON: No prior exams available for comparison. FINDINGS: Endotracheal tube is in good position. Mild basilar airspace disease. No significant effusion. No pne umothorax. CONCLUSION: Minimal left basilar opacity which may represent atelectasis. Endotracheal tube in good position. Electronically signed by: Reymundo Chung MD 08/16/2018 4:54 PM EDT
[2018-08-16] MEDS ORDERED: Norepinephrine Inj 4 MG in Sodium Chlor 0.9% Inj 246 ML IV.SIG PRN (17:03)
[2018-08-16 17:12] LABS: Albumin 3.3 g/dL (3.4-5.0); Anion Gap 9 meq/L (5-15); Aspartate Aminotransferase 29 U/L (15-37); Blood Urea Nitrogen 9 mg/dL (7-18); Calcium 7.3 mg/dL (8.5-10.1); Carbon Dioxide 22.4 meq/L (21.0-32.0); Chloride 116 meq/L (98-107); Glomerular Filtration Rate Greater Than 89 mL/min (>89); Glucose,Random 138 mg/dL (74-106); Magnesium 2.4 mg/dL (1.5-2.5); Potassium 4.5 meq/L (3.5-5.1); Sodium 147 meq/L (136-145)
[2018-08-16 17:19] LABS: Alanine Aminotransferase 18 U/L (12-78); Alkaline Phosphatase 49 U/L (45-117); Total Protein 5.7 g/dL (6.4-8.2)
[2018-08-16] MEDS ORDERED: DOPamine Inj 800 MG in Sodium Chlor 0.9% Inj 500 ML IV.CONT PRN (17:24)
[2018-08-16 17:41] LABS: INR 1.1 Ratio; Prothrombin Time 11.4 sec (9.8-11.6)
[2018-08-16] MEDS ORDERED: Sodium Chloride 23.4% Inj 188 MEQ in Sod Chloride 0.9% Inj 1,000 ML IV.CONT SCH (18:00)
[2018-08-16] MEDS: Propofol 1000 mg/100 ml Inj 1,000 MG/100 ML BOTTLE IV.CONT PRN (18:20)
[2018-08-16] MEDS: fentaNYL 10 mcg/mL Premix Drip 2,500 MCG/250 ML BAG IV.SIG PRN (18:21)
[2018-08-16] MEDS: Chlorhexidine 0.12% Oral Kit 15 ML UDC OROPHARYNG SCH (19:37)
[2018-08-16] MEDS: Senna/Docusate Sodium 8.6/50 MG Tablet PO SCH (20:47)
[2018-08-16] MEDS: Famotidine PF Inj 20 MG/2 ML Vial IV.PUSH SCH (20:48)
[2018-08-16 21:37] LABS: ABG Base Excess -4.6 mmol/L (-2-2); ABG PCO2 37 mmHg (38-42); ABG PO2 315 mmHg (61-120)
[2018-08-17] MEDS: Propofol 1000 mg/100 ml Inj 1,000 MG/100 ML BOTTLE IV.CONT PRN (03:17)
[2018-08-17] MEDS: Oral Hygiene Kit OROPHARYNG SCH (03:18)
[2018-08-17 03:52] LABS: Baso % (Auto) 0.1 % (0.0-2.0); Hematocrit 41.9 % (39.0-51.0); Hemoglobin 14.3 gm/dL (13.0-17.0); Lymph # (Auto) 0.4 th/mm3 (1.0-4.8); Lymph % (Auto) 1.8 % (9.0-44.0); Mean Corpuscular HGB Conc 34.1 % (32.0-36.0); Mean Corpuscular Hemoglobin 28.8 pg (27.0-34.0); Mean Corpuscular Volume 84.5 fL (80.0-100.0); Mean Platelet Volume 9.6 fL (7.0-11.0); Mono # (Auto) 1.9 th/mm3 (0.0-0.9); Mono % (Auto) 7.9 % (0.0-8.0); Neut # (Auto) 21.4 th/mm3 (1.8-7.7); Neut % (Auto) 90.2 % (16.0-70.0); Platelet Count 221 th/mm3 (150-450); Red Blood Count 4.95 mil/mm3 (4.50-5.90); Red Cell Distribution Width 13.7 % (11.6-17.2); White Blood Count 23.8 th/mm3 (4.0-11.0)
[2018-08-17] MEDS ORDERED: Chlorhexidine Gluconate 2% 1 Pack (2 Cloths) TOPICAL PRN (04:00)
[2018-08-17] MEDS ORDERED: Chlorhexidine Gluconate 2% 1 Pack (2 Cloths) TOPICAL SCH (04:00)
[2018-08-17 04:03] LABS: INR 1.1 Ratio; Prothrombin Time 11.3 sec (9.8-11.6)
[2018-08-17] MEDS: fentaNYL 10 mcg/mL Premix Drip 2,500 MCG/250 ML BAG IV.SIG PRN (05:55)
[2018-08-17] MEDS ORDERED: Phenylephrine Inj 160 MG in Sodium Chlor 0.9% Inj 484 ML IV.CONT PRN (06:13)
[2018-08-17 06:18] LABS: ABG Base Excess -4.9 mmol/L (-2-2); ABG PCO2 41 mmHg (38-42); ABG PO2 359 mmHg (61-120)
--- NOTE | 2018-08-17 06:21 | P.PNCC ---
Subjective Subjective Remarks/Hospital Course: This otherwise healthy 38-year-old gentleman complained of a headache earlier today by phone. By the time EMS had arrived he was unresponsive and required intubation and mechanical ventilation. On arrival to the emergency department he had a very large left hemispheric intraparenchymal hemorrhage with some subarachnoid blood as well. Both pupils were dilated to 8 mm and unresponsive. The patient was taken to the operating room emergently with impending herniation. I saw him in the emergency department and met him again on his arrival from the OR to the intensive care unit. He is undergone decompression of the left hemispheric bleed and a cranial flap is been removed. Because of active bleeding extending to both ventricles and intra ventricular drainage device was not placed for fear it would just clot off immediately. Active bleeding continues and the patient likely has an aneurysm or an arteriovenous malformation. He is far too unstable at this point to undergo CT angiography of the cerebral vessels. I spoke extensively with the neurosurgeon and with his parents at the bedside. They appreciate that his neurologic status was severely diminished on arrival to the hospital and that his likelihood of survival from this acute bleed is markedly low. 08/17: Continued deterioration overnight with loss of vasomotor tone requiring large amounts of vasopressor support. He is unresponsive and pupils remain fixed and dilated. No cough or gag reflex, no corneal reflex, no respiratory effort over the ventilator settings. Ongoing problems with hypotension and bradycardia. Family has requested no escalation of care and further requests that we remove vasopressor agents. I concur with their reasonable request as this is an unsalvageable situation -the brain damage is extensive and involves the dominant hemisphere. - Diagnosis (1) Intracranial hemorrhage (2) Encephalopathy acute (3) Acute respiratory failure Objective Vital Signs / I&O: Vital Signs 08/16/18 13:16 08/16/18 13:19 08/16/18 13:21 Temperature Pulse Rate 89 88 Respiratory Rate 38 H 16 23 Blood Pressure 132/72 127/73 Pulse Oximetry 100 100 100 08/16/18 13:22 08/16/18 13:23 08/16/18 13:40 Temperature Pulse Rate 67 64 Respiratory Rate 30 H 16 Blood Pressure 113/66 156/87 H Pulse Oximetry 100 100 100 08/16/18 13:44 08/16/18 16:00 08/16/18 16:15 Temperature 97.9 F 94.3 F L Pulse Rate 88 69 Respiratory Rate 52 H 35 H Blood Pressure 108/58 L Pulse Oximetry 100 100 08/16/18 16:30 08/16/18 16:31 08/16/18 16:45 Temperature 94.3 F L 95.2 F L Pulse Rate 53 L 51 L Respiratory Rate 18 18 18 Blood Pressure Pulse Oximetry 100 100 100 08/16/18 17:00 08/16/18 17:15 08/16/18 17:30 Temperature 95.4 F L 95.7 F L 95.9 F L Pulse Rate 48 L 49 L 55 L Respiratory Rate 18 18 20 Blood Pressure Pulse Oximetry 100 100 100 08/16/18 17:45 08/16/18 18:00 08/16/18 18:15 Temperature 95.9 F L 95.9 F L 95.9 F L Pulse Rate 48 L 48 L 43 L Respiratory Rate 20 40 H 20 Blood Pressure Pulse Oximetry 100 100 100 08/16/18 18:30 08/16/18 18:45 08/16/18 19:00 Temperature 95.9 F L 95.9 F L 95.9 F L Pulse Rate 43 L 53 L 62 Respiratory Rate 20 20 20 Blood Pressure Pulse Oximetry 100 100 100 08/16/18 19:15 08/16/18 19:30 08/16/18 19:37 Temperature 95.9 F L 95.9 F L 95.9 F L Pulse Rate 63 64 65 Respiratory Rate 20 20 20 Blood Pressure 97/60 L Pulse Oximetry 100 100 100 08/16/18 19:45 08/16/18 20:00 08/16/18 20:15 Temperature 95.7 F L 95.7 F L 95.5 F L Pulse Rate 68 72 73 Respiratory Rate 20 20 20 Blood Pressure 93/63 L Pulse Oximetry 100 100 100 08/16/18 20:30 08/16/18 20:45 08/16/18 21:00 Temperature 95.4 F L 95.4 F L 95.2 F L Pulse Rate 83 88 94 H Respiratory Rate 20 20 20 Blood Pressure 98/56 L Pulse Oximetry 100 100 100 08/16/18 21:15 08/16/18 21:30 08/16/18 21:45 Temperature 95.0 F L 95.0 F L 94.8 F L Pulse Rate 96 H 98 H 117 H Respiratory Rate 20 20 20 Blood Pressure Pulse Oximetry 100 100 100 08/16/18 22:00 08/16/18 22:15 08/16/18 22:30 Temperature 94.6 F L 94.5 F L 94.3 F L Pulse Rate 126 H 84 82 Respiratory Rate 20 20 20 Blood Pressure 89/64 L Pulse Oximetry 100 100 100 08/16/18 22:45 08/16/18 23:00 08/16/18 23:15 Temperature 94.5 F L 94.6 F L 95.2 F L Pulse Rate 90 96 H 98 H Respiratory Rate 20 20 20 Blood Pressure 99/62 L Pulse Oximetry 100 100 100 08/16/18 23:30 08/16/18 23:45 08/16/18 23:52 Temperature 95.5 F L 96.1 F L Pulse Rate 105 H 108 H Respiratory Rate 20 20 20 Blood Pressure Pulse Oximetry 100 100 100 08/17/18 00:00 08/17/18 00:15 08/17/18 00:30 Temperature 96.6 F L 97.2 F L 97.5 F L Pulse Rate 110 H 116 H 115 H Respiratory Rate 20 20 20 Blood Pressure 95/70 L Pulse Oximetry 100 100 100 08/17/18 00:45 08/17/18 01:00 08/17/18 01:15 Temperature 97.7 F 97.9 F 98.1 F Pulse Rate 115 H 118 H 119 H Respiratory Rate 20 20 20 Blood Pressure 96/66 L Pulse Oximetry 100 100 100 08/17/18 01:30 08/17/18 01:45 08/17/18 02:00 Temperature 98.2 F 98.2 F 98.4 F Pulse Rate 119 H 119 H 122 H Respiratory Rate 20 20 20 Blood Pressure 92/70 L Pulse Oximetry 100 100 100 08/17/18 02:15 08/17/18 02:30 08/17/18 02:45 Temperature 98.4 F 98.2 F 97.9 F Pulse Rate 125 H 121 H 119 H Respiratory Rate 20 20 20 Blood Pressure Pulse Oximetry 100 100 100 08/17/18 03:00 08/17/18 03:15 08/17/18 03:30 Temperature 97.7 F 97.7 F 97.7 F Pulse Rate 124 H 126 H 126 H Respiratory Rate 20 20 20 Blood Pressure 88/60 L Pulse Oximetry 100 100 100 08/17/18 03:45 08/17/18 04:00 08/17/18 04:15 Temperature 97.5 F L 97.5 F L 97.5 F L Pulse Rate 127 H 139 H 141 H Respiratory Rate 20 20 20 Blood Pressure 88/54 L Pulse Oximetry 100 100 100 08/17/18 04:17 08/17/18 04:30 08/17/18 04:38 Temperature 97.5 F L 97.3 F L Pulse Rate 142 H 122 H Respiratory Rate 20 21 20 Blood Pressure 53/25 L Pulse Oximetry 100 100 100 08/17/18 04:45 08/17/18 05:00 08/17/18 05:15 Temperature 97.3 F L 97.2 F L 97.2 F L Pulse Rate 91 H 147 H 162 H Respiratory Rate 34 H 40 H 20 Blood Pressure Pulse Oximetry 100 100 100 08/17/18 05:27 08/17/18 05:30 08/17/18 05:45 Temperature 97.0 F L 97.0 F L 97.0 F L Pulse Rate 165 H 161 H 163 H Respiratory Rate 20 20 20 Blood Pressure 54/35 L Pulse Oximetry 100 100 100 08/17/18 06:00 Temperature 97.0 F L Pulse Rate 165 H Respiratory Rate 20 Blood Pressure 90/55 L Pulse Oximetry 100 Intake & Output 08/16/18 08/16/18 08/17/18 06:59 18:59 06:59 Intake Total 2655 / 2655 455 / 455 Output Total 3875 / 3875 Balance -1220 / -1220 455 / 455 Weight 64.3 kg Intake: IV 155 / 155 455 / 455 Diprivan 1000 mg/100 ml Inj 1, 100 / 100 000 mg In 100 ml @ 5 MCG/KG/MIN 1.929 mls/hr IV.CONT TITRATE PRN Rx#:[id number] Ancef 2 GM Premix Inj 2 gm In 50 / 50 50 ml @ 0 mls/hr IV.SIG .STK- MED ONE Rx#:[id number] fentaNYL 10 mcg/mL Premix Drip 250 / 250 2,500 mcg In 250 ml @ 50 MCG/HR 5 mls/hr IV.SIG TITRATE PRN Rx #:[id number] Keppra 1000 mg/100 mL Premix 105 / 105 100 ML @ 400 mls/hr IV.SIG ONCE ONE Rx#:[id number] Keppra Inj 500 MG In NS Inj 100 105 / 105 ML @ 400 mls/hr IV.SIG Q12H MAYA Rx#:[id number] Anesthesia Amount 2500 / 2500 Output: Estimated Blood Loss 600 / 600 Urine Amount (Catheter) 3275 / 3275 Indwelling Urethral Catheter 3275 / 3275 Other: Weight On Admission 64.3 kg Result Diagrams: 08/17/18 03:45 08/17/18 06:45 Objective Remarks: Narrative: General: Unresponsive, intubated, mechanically ventilated Head: Atraumatic, normal Neck: Supple, oral tracheal intubation Lungs: Clear bilaterally without wheezes or crackles, few mobile secretions, good bilateral air entry with ventilator breaths Heart: Bradycardic rate and rhythm, normal S1-S2, no JVD Abdomen: Soft, nondistended, no guarding, quiet Extremities: Tepid, well-perfused. Toes and fingers cool Skin: Pale Neuro: Pupils 8 mm, unresponsive bilaterally. No cough reflex, no gag reflex. Absent corneal reflex, no posturing to noxious stimulation, no spontaneous movement. Does not breathe over vent. Assessment and Plan - Problem List (1) Intracranial hemorrhage Code(s): I62.9 - Nontraumatic intracranial hemorrhage, unspecified Status: Acute (2) Encephalopathy acute Code(s): G93.40 - Encephalopathy, unspecified Status: Acute (3) Acute respiratory failure Code(s): J96.00 - Acute respiratory failure, unspecified whether with hypoxia or hypercapnia Status: Acute - Assessment and Plan Plan: Neuro -neuro checks every 15 minutes -Concentrate serum sodium, try to keep osmolality greater than 300 -Head of bed up 45 degrees -Keppra seizure prophylaxis -Serial sodium determination -Notified trans-life of patient condition -Continue 2% saline, and attempt to keep serum sodium in the [id number] range Respiratory -PRVC ventilator mode -Maintain end-tidal carbon dioxide at low level of normal -Check chest x-ray to confirm position of ET tube -> good position. -Arterial blood gas -Bronchodilators as needed bronchospasm Cardiovascular -Vasopressors to maintain cerebral perfusion pressure greater than 60 -Avoid profound hypertension -Check potassium following active osmotic diuresis -Because of bradycardia will initiate dopamine and discontinue phenylephrine GI -Nasogastric tube to low intermittent suction -N.p.o. -Kaufman required for hourly output determination -Watch for diabetes insipidus Hematology -Check coagulation profile ID -Culture for fevers -Usual perioperative prophylaxis coverage Prophylaxis -Chemical DVT prophylaxis contraindicated. -SCDs -Pepcid IV twice daily Overall impression: This gentleman remains critically ill and unstable. He arrived to the emergency department with a catastrophic intracranial hemorrhage and attempts have been undertaken to prevent impending brain herniation. He appears to have sustained a devastating neurologic injury prior to admission and although decompressed remains at very high risk for ongoing bleeding and swelling. His prognosis is guarded and the family has been informed that it is very unlikely that he can survive this injury. Worsening hemodynamic instability and evidence of profound and devastating neurologic injury. Critical care time 65 minutes aside from procedures.
[2018-08-17 07:26] LABS: Calcium 7.9 mg/dL (8.5-10.1); Magnesium 2.8 mg/dL (1.5-2.5)
[2018-08-17 07:27] LABS: Carbon Dioxide 21.7 meq/L (21.0-32.0); Phosphorus 1.4 mg/dL (2.5-4.9); Potassium 5.2 meq/L (3.5-5.1)
[2018-08-17 08:44] VITALS: TEMP 97.2
[2018-08-17] MEDS: Famotidine PF Inj 20 MG/2 ML Vial IV.PUSH SCH (08:45)
[2018-08-17] MEDS: Chlorhexidine 0.12% Oral Kit 15 ML UDC OROPHARYNG SCH (08:45)
[2018-08-17] MEDS: Senna/Docusate Sodium 8.6/50 MG Tablet PO SCH (08:46)
[2018-08-17 09:00] VITALS: RESP 12
[2018-08-17 09:19] VITALS: BP 56/34; PULSE 109
--- NOTE | 2018-08-17 11:05 | P.PNNS ---
Subjective Interval history: intubated, pupils dilated and fixed Physical Exam Vital signs: Vital Signs 08/16/18 13:16 08/16/18 13:19 08/16/18 13:21 Temperature Pulse Rate 89 88 Respiratory Rate 38 H 16 23 Blood Pressure 132/72 127/73 Pulse Oximetry 100 100 100 08/16/18 13:22 08/16/18 13:23 08/16/18 13:40 Temperature Pulse Rate 67 64 Respiratory Rate 30 H 16 Blood Pressure 113/66 156/87 H Pulse Oximetry 100 100 100 08/16/18 13:44 08/16/18 16:00 08/16/18 16:15 Temperature 97.9 F 94.3 F L Pulse Rate 88 69 Respiratory Rate 52 H 35 H Blood Pressure 108/58 L Pulse Oximetry 100 100 08/16/18 16:30 08/16/18 16:31 08/16/18 16:45 Temperature 94.3 F L 95.2 F L Pulse Rate 53 L 51 L Respiratory Rate 18 18 18 Blood Pressure Pulse Oximetry 100 100 100 08/16/18 17:00 08/16/18 17:15 08/16/18 17:30 Temperature 95.4 F L 95.7 F L 95.9 F L Pulse Rate 48 L 49 L 55 L Respiratory Rate 18 18 20 Blood Pressure Pulse Oximetry 100 100 100 08/16/18 17:45 08/16/18 18:00 08/16/18 18:15 Temperature 95.9 F L 95.9 F L 95.9 F L Pulse Rate 48 L 48 L 43 L Respiratory Rate 20 40 H 20 Blood Pressure Pulse Oximetry 100 100 100 08/16/18 18:30 08/16/18 18:45 08/16/18 19:00 Temperature 95.9 F L 95.9 F L 95.9 F L Pulse Rate 43 L 53 L 62 Respiratory Rate 20 20 20 Blood Pressure Pulse Oximetry 100 100 100 08/16/18 19:15 08/16/18 19:30 08/16/18 19:37 Temperature 95.9 F L 95.9 F L 95.9 F L Pulse Rate 63 64 65 Respiratory Rate 20 20 20 Blood Pressure 97/60 L Pulse Oximetry 100 100 100 08/16/18 19:45 08/16/18 20:00 08/16/18 20:15 Temperature 95.7 F L 95.7 F L 95.5 F L Pulse Rate 68 72 73 Respiratory Rate 20 20 20 Blood Pressure 93/63 L Pulse Oximetry 100 100 100 08/16/18 20:30 08/16/18 20:45 08/16/18 21:00 Temperature 95.4 F L 95.4 F L 95.2 F L Pulse Rate 83 88 94 H Respiratory Rate 20 20 20 Blood Pressure 98/56 L Pulse Oximetry 100 100 100 08/16/18 21:15 08/16/18 21:30 08/16/18 21:45 Temperature 95.0 F L 95.0 F L 94.8 F L Pulse Rate 96 H 98 H 117 H Respiratory Rate 20 20 20 Blood Pressure Pulse Oximetry 100 100 100 08/16/18 22:00 08/16/18 22:15 08/16/18 22:30 Temperature 94.6 F L 94.5 F L 94.3 F L Pulse Rate 126 H 84 82 Respiratory Rate 20 20 20 Blood Pressure 89/64 L Pulse Oximetry 100 100 100 08/16/18 22:45 08/16/18 23:00 08/16/18 23:15 Temperature 94.5 F L 94.6 F L 95.2 F L Pulse Rate 90 96 H 98 H Respiratory Rate 20 20 20 Blood Pressure 99/62 L Pulse Oximetry 100 100 100 08/16/18 23:30 08/16/18 23:45 08/16/18 23:52 Temperature 95.5 F L 96.1 F L Pulse Rate 105 H 108 H Respiratory Rate 20 20 20 Blood Pressure Pulse Oximetry 100 100 100 08/17/18 00:00 08/17/18 00:15 08/17/18 00:30 Temperature 96.6 F L 97.2 F L 97.5 F L Pulse Rate 110 H 116 H 115 H Respiratory Rate 20 20 20 Blood Pressure 95/70 L Pulse Oximetry 100 100 100 08/17/18 00:45 08/17/18 01:00 08/17/18 01:15 Temperature 97.7 F 97.9 F 98.1 F Pulse Rate 115 H 118 H 119 H Respiratory Rate 20 20 20 Blood Pressure 96/66 L Pulse Oximetry 100 100 100 08/17/18 01:30 08/17/18 01:45 08/17/18 02:00 Temperature 98.2 F 98.2 F 98.4 F Pulse Rate 119 H 119 H 122 H Respiratory Rate 20 20 20 Blood Pressure 92/70 L Pulse Oximetry 100 100 100 08/17/18 02:15 08/17/18 02:30 08/17/18 02:45 Temperature 98.4 F 98.2 F 97.9 F Pulse Rate 125 H 121 H 119 H Respiratory Rate 20 20 20 Blood Pressure Pulse Oximetry 100 100 100 08/17/18 03:00 08/17/18 03:15 08/17/18 03:30 Temperature 97.7 F 97.7 F 97.7 F Pulse Rate 124 H 126 H 126 H Respiratory Rate 20 20 20 Blood Pressure 88/60 L Pulse Oximetry 100 100 100 08/17/18 03:45 08/17/18 04:00 08/17/18 04:15 Temperature 97.5 F L 97.5 F L 97.5 F L Pulse Rate 127 H 139 H 141 H Respiratory Rate 20 20 20 Blood Pressure 88/54 L Pulse Oximetry 100 100 100 08/17/18 04:17 08/17/18 04:30 08/17/18 04:38 Temperature 97.5 F L 97.3 F L Pulse Rate 142 H 122 H Respiratory Rate 20 21 20 Blood Pressure 53/25 L Pulse Oximetry 100 100 100 08/17/18 04:45 08/17/18 05:00 08/17/18 05:15 Temperature 97.3 F L 97.2 F L 97.2 F L Pulse Rate 91 H 147 H 162 H Respiratory Rate 34 H 40 H 20 Blood Pressure Pulse Oximetry 100 100 100 08/17/18 05:27 08/17/18 05:30 08/17/18 05:45 Temperature 97.0 F L 97.0 F L 97.0 F L Pulse Rate 165 H 161 H 163 H Respiratory Rate 20 20 20 Blood Pressure 54/35 L Pulse Oximetry 100 100 100 08/17/18 06:00 08/17/18 08:00 08/17/18 08:55 Temperature 97.0 F L 97.2 F L Pulse Rate 165 H 114 H Respiratory Rate 20 20 12 Blood Pressure 90/55 L 56/24 L Pulse Oximetry 100 08/17/18 09:00 Temperature Pulse Rate 109 H Respiratory Rate 12 Blood Pressure 56/34 L Pulse Oximetry 100 Intake & Output 10/21/18 10/22/18 10/22/18 18:59 06:59 18:59 Intake Total 2655 / 2655 455 / 455 Output Total 3875 / 3875 3000 / 3000 Balance -1220 / -1220 -2545 / -2545 Weight 64.3 kg 65.4 kg Intake: IV 155 / 155 455 / 455 Diprivan 1000 mg/100 ml Inj 1, 100 / 100 000 mg In 100 ml @ 5 MCG/KG/MIN 1.929 mls/hr IV.CONT TITRATE PRN Rx#:[id number] Ancef 2 GM Premix Inj 2 gm In 50 / 50 50 ml @ 0 mls/hr IV.SIG .STK- MED ONE Rx#:[id number] fentaNYL 10 mcg/mL Premix Drip 250 / 250 2,500 mcg In 250 ml @ 50 MCG/HR 5 mls/hr IV.SIG TITRATE PRN Rx #:[id number] Keppra 1000 mg/100 mL Premix 105 / 105 100 ML @ 400 mls/hr IV.SIG ONCE ONE Rx#:[id number] Keppra Inj 500 MG In NS Inj 100 105 / 105 ML @ 400 mls/hr IV.SIG Q12H MAYA Rx#:[id number] Anesthesia Amount 2500 / 2500 Output: Estimated Blood Loss 600 / 600 Urine Amount (Catheter) 3275 / 3275 3000 / 3000 Indwelling Urethral Catheter 3275 / 3275 3000 / 3000 Other: Weight On Admission 64.3 kg Narrative: intubated pupils dilated and fixed no spontaneous movement no eye opening no response to pain stimuli - Urinary Catheter Management Indwelling Urethral Catheter Cath placed during this visit: yes Reason for continuing: Hourly intake/output Insertion date: 08/16/18 Insertion time: 13:45 Assessment and Plan - Plan 38yoM with terminal left frontal IPH w/ IVH. Source possible AVM or aneurysm. Left frontal craniectomy, evacuation of clot, attempted EVD by Dr Ramos () Plan: exam with fixed and dilated pupils, prognosis is poor Dr. Kervin alvarado family in room
--- NOTE | 2018-08-17 12:19 | P.DS ---
Date of admission: 08/16/18 13:57 Primary care physician: UNKNOWN Attending physician on discharge: Raza Alberto Brief History from admission: This otherwise healthy 38-year-old gentleman complained of a headache earlier today by phone. By the time EMS had arrived he was unresponsive and required intubation and mechanical ventilation. On arrival to the emergency department he had a very large left hemispheric intraparenchymal hemorrhage with some subarachnoid blood as well. Both pupils were dilated to 8 mm and unresponsive. The patient was taken to the operating room emergently with impending herniation. I saw him in the emergency department and met him again on his arrival from the OR to the intensive care unit. He is undergone decompression of the left hemispheric bleed and a cranial flap is been removed. Because of active bleeding extending to both ventricles and intra ventricular drainage device was not placed for fear it would just clot off immediately. Active bleeding continues and the patient likely has an aneurysm or an arteriovenous malformation. He is far too unstable at this point to undergo CT angiography of the cerebral vessels. I spoke extensively with the neurosurgeon and with his parents at the bedside. They appreciate that his neurologic status was severely diminished on arrival to the hospital and that his likelihood of survival from this acute bleed is markedly low. Patient update on day of discharge: The patient continued to deteriorate overnight with increasing requirements for vasopressor therapy including Capo-Synephrine and Levophed. Pupils remain fixed and dilated and there are no reflexes. Corneals, gag, cough, DTRs, doll's eyes all absent. No spontaneous movement no spontaneous respiratory effort. The family has requested withdrawal of artificial support because the chance for any type of meaningful recovery is zero. The patient underwent compassionate extubation following the verification by 2 physicians that the chances for any meaningful recovery did not exist. The patient naturally at 1104 hrs. on August 17, 2018. The family was at the bedside. Cause of is massive spontaneous intracranial hemorrhage. DS: Diagnosis - Discharge Diagnosis (1) Intracranial hemorrhage Status: Acute (2) Encephalopathy acute Status: Acute (3) Acute respiratory failure Status: Acute DS: Summary Hospital Course: Please see narrative on page 1. - Time Spent with Patient Total time spent providing and/or coordinating discharge services: Greater than 30 minutes Exam Vital signs: Vital Signs 08/16/18 13:16 08/16/18 13:19 08/16/18 13:21 Temperature Pulse Rate 89 88 Respiratory Rate 38 H 16 23 Blood Pressure 132/72 127/73 Pulse Oximetry 100 100 100 08/16/18 13:22 08/16/18 13:23 08/16/18 13:40 Temperature Pulse Rate 67 64 Respiratory Rate 30 H 16 Blood Pressure 113/66 156/87 H Pulse Oximetry 100 100 100 08/16/18 13:44 08/16/18 16:00 08/16/18 16:15 Temperature 97.9 F 94.3 F L Pulse Rate 88 69 Respiratory Rate 52 H 35 H Blood Pressure 108/58 L Pulse Oximetry 100 100 08/16/18 16:30 08/16/18 16:31 08/16/18 16:45 Temperature 94.3 F L 95.2 F L Pulse Rate 53 L 51 L Respiratory Rate 18 18 18 Blood Pressure Pulse Oximetry 100 100 100 08/16/18 17:00 08/16/18 17:15 08/16/18 17:30 Temperature 95.4 F L 95.7 F L 95.9 F L Pulse Rate 48 L 49 L 55 L Respiratory Rate 18 18 20 Blood Pressure Pulse Oximetry 100 100 100 08/16/18 17:45 08/16/18 18:00 08/16/18 18:15 Temperature 95.9 F L 95.9 F L 95.9 F L Pulse Rate 48 L 48 L 43 L Respiratory Rate 20 40 H 20 Blood Pressure Pulse Oximetry 100 100 100 08/16/18 18:30 08/16/18 18:45 08/16/18 19:00 Temperature 95.9 F L 95.9 F L 95.9 F L Pulse Rate 43 L 53 L 62 Respiratory Rate 20 20 20 Blood Pressure Pulse Oximetry 100 100 100 08/16/18 19:15 08/16/18 19:30 08/16/18 19:37 Temperature 95.9 F L 95.9 F L 95.9 F L Pulse Rate 63 64 65 Respiratory Rate 20 20 20 Blood Pressure 97/60 L Pulse Oximetry 100 100 100 08/16/18 19:45 08/16/18 20:00 08/16/18 20:15 Temperature 95.7 F L 95.7 F L 95.5 F L Pulse Rate 68 72 73 Respiratory Rate 20 20 20 Blood Pressure 93/63 L Pulse Oximetry 100 100 100 08/16/18 20:30 08/16/18 20:45 08/16/18 21:00 Temperature 95.4 F L 95.4 F L 95.2 F L Pulse Rate 83 88 94 H Respiratory Rate 20 20 20 Blood Pressure 98/56 L Pulse Oximetry 100 100 100 08/16/18 21:15 08/16/18 21:30 08/16/18 21:45 Temperature 95.0 F L 95.0 F L 94.8 F L Pulse Rate 96 H 98 H 117 H Respiratory Rate 20 20 20 Blood Pressure Pulse Oximetry 100 100 100 08/16/18 22:00 08/16/18 22:15 08/16/18 22:30 Temperature 94.6 F L 94.5 F L 94.3 F L Pulse Rate 126 H 84 82 Respiratory Rate 20 20 20 Blood Pressure 89/64 L Pulse Oximetry 100 100 100 08/16/18 22:45 08/16/18 23:00 08/16/18 23:15 Temperature 94.5 F L 94.6 F L 95.2 F L Pulse Rate 90 96 H 98 H Respiratory Rate 20 20 20 Blood Pressure 99/62 L Pulse Oximetry 100 100 100 08/16/18 23:30 08/16/18 23:45 08/16/18 23:52 Temperature 95.5 F L 96.1 F L Pulse Rate 105 H 108 H Respiratory Rate 20 20 20 Blood Pressure Pulse Oximetry 100 100 100 08/17/18 00:00 08/17/18 00:15 08/17/18 00:30 Temperature 96.6 F L 97.2 F L 97.5 F L Pulse Rate 110 H 116 H 115 H Respiratory Rate 20 20 20 Blood Pressure 95/70 L Pulse Oximetry 100 100 100 08/17/18 00:45 08/17/18 01:00 08/17/18 01:15 Temperature 97.7 F 97.9 F 98.1 F Pulse Rate 115 H 118 H 119 H Respiratory Rate 20 20 20 Blood Pressure 96/66 L Pulse Oximetry 100 100 100 08/17/18 01:30 08/17/18 01:45 08/17/18 02:00 Temperature 98.2 F 98.2 F 98.4 F Pulse Rate 119 H 119 H 122 H Respiratory Rate 20 20 20 Blood Pressure 92/70 L Pulse Oximetry 100 100 100 08/17/18 02:15 08/17/18 02:30 08/17/18 02:45 Temperature 98.4 F 98.2 F 97.9 F Pulse Rate 125 H 121 H 119 H Respiratory Rate 20 20 20 Blood Pressure Pulse Oximetry 100 100 100 08/17/18 03:00 08/17/18 03:15 08/17/18 03:30 Temperature 97.7 F 97.7 F 97.7 F Pulse Rate 124 H 126 H 126 H Respiratory Rate 20 20 20 Blood Pressure 88/60 L Pulse Oximetry 100 100 100 08/17/18 03:45 08/17/18 04:00 08/17/18 04:15 Temperature 97.5 F L 97.5 F L 97.5 F L Pulse Rate 127 H 139 H 141 H Respiratory Rate 20 20 20 Blood Pressure 88/54 L Pulse Oximetry 100 100 100 08/17/18 04:17 08/17/18 04:30 08/17/18 04:38 Temperature 97.5 F L 97.3 F L Pulse Rate 142 H 122 H Respiratory Rate 20 21 20 Blood Pressure 53/25 L Pulse Oximetry 100 100 100 08/17/18 04:45 08/17/18 05:00 08/17/18 05:15 Temperature 97.3 F L 97.2 F L 97.2 F L Pulse Rate 91 H 147 H 162 H Respiratory Rate 34 H 40 H 20 Blood Pressure Pulse Oximetry 100 100 100 08/17/18 05:27 08/17/18 05:30 08/17/18 05:45 Temperature 97.0 F L 97.0 F L 97.0 F L Pulse Rate 165 H 161 H 163 H Respiratory Rate 20 20 20 Blood Pressure 54/35 L Pulse Oximetry 100 100 100 08/17/18 06:00 08/17/18 08:00 08/17/18 08:55 Temperature 97.0 F L 97.2 F L Pulse Rate 165 H 114 H Respiratory Rate 20 20 12 Blood Pressure 90/55 L 56/24 L Pulse Oximetry 100 08/17/18 09:00 Temperature Pulse Rate 109 H Respiratory Rate 12 Blood Pressure 56/34 L Pulse Oximetry 100 Intake & Output 08/16/18 08/17/18 08/17/18 18:59 06:59 18:59 Intake Total 2655 / 2655 455 / 455 Output Total 3875 / 3875 3000 / 3000 Balance -1220 / -1220 -2545 / -2545 Weight 64.3 kg 65.4 kg Intake: IV 155 / 155 455 / 455 Diprivan 1000 mg/100 ml Inj 1, 100 / 100 000 mg In 100 ml @ 5 MCG/KG/MIN 1.929 mls/hr IV.CONT TITRATE PRN Rx#:[id number] Ancef 2 GM Premix Inj 2 gm In 50 / 50 50 ml @ 0 mls/hr IV.SIG .STK- MED ONE Rx#:[id number] fentaNYL 10 mcg/mL Premix Drip 250 / 250 2,500 mcg In 250 ml @ 50 MCG/HR 5 mls/hr IV.SIG TITRATE PRN Rx #:[id number] Keppra 1000 mg/100 mL Premix 105 / 105 100 ML @ 400 mls/hr IV.SIG ONCE ONE Rx#:[id number] Keppra Inj 500 MG In NS Inj 100 105 / 105 ML @ 400 mls/hr IV.SIG Q12H MAYA Rx#:[id number] Anesthesia Amount 2500 / 2500 Output: Estimated Blood Loss 600 / 600 Urine Amount (Catheter) 3275 / 3275 3000 / 3000 Indwelling Urethral Catheter 3275 / 3275 3000 / 3000 Other: Weight On Admission 64.3 kg Narrative: Results Procedures completed during hospitalization: Intubation and mechanical ventilation Left craniotomy and evacuation of spontaneous brain hemorrhage Completed studies during hospitalization: CAT scan head -large left intraparenchymal hemorrhage Labs on day of discharge: Labs from last 24 hours 08/17/18 08/17/18 08/17/18 06:45 05:58 03:45 WBC RBC Hgb Hct MCV MCH MCHC RDW Plt Count MPV Neut % (Auto) Lymph % (Auto) [place] % (Auto) Eos % (Auto) Baso % (Auto) Neut # (Auto) Lymph # (Auto) [place] # (Auto) Eos # (Auto) Baso # (Auto) WBC Differential Differential Comment PT 11.3 INR 1.1 Puncture Site Art line Patient Temperature 98.6 O2 Saturation 99 ABG pH 7.32 L ABG pCO2 41 ABG pO2 359 H ABG HCO3 20 L ABG O2 Content 19.0 ABG Base Excess -4.9 L ABG Methemoglobin 0.7 [place] Test Hemoglobin 13.1 Carboxyhemoglobin 0.3 O2 Delivery Device Ventilator Vent Setting See comments Inspired O2 100 Critical Value No Sodium 162 H* D Potassium 5.2 H Chloride 136 H D Carbon Dioxide 21.7 Anion Gap 4 L BUN 11 Creatinine 1.38 H Estimated GFR 58 L Random Glucose 167 H Calcium 7.9 L Prot Corrected Calcium Phosphorus 1.4 L Magnesium 2.8 H Total Bilirubin AST ALT Alkaline Phosphatase Ammonia Troponin I Total Protein Albumin Urine Color Urine Clarity Urine pH Ur Specific Elizabeth Urine Protein Urine Glucose (UA) Urine Ketones Urine Occult Blood Urine Nitrate Urine Bilirubin Urine Urobilinogen Ur Leukocyte Esterase Urine RBC Urine WBC Urine Mucus Micro UA Comment Ur Microscopic Review Urine Culture Comments Nasal Screen MRSA (PCR) Urine Opiates Screen Ur Barbiturates Screen Ur Amphetamines Screen U Benzodiazepines Scrn Urine Cocaine Screen U Cannabinoids Screen 08/17/18 08/16/18 08/16/18 03:45 21:15 19:45 WBC 23.8 H RBC 4.95 Hgb 14.3 Hct 41.9 MCV 84.5 MCH 28.8 MCHC 34.1 RDW 13.7 Plt Count 221 MPV 9.6 Neut % (Auto) 90.2 H Lymph % (Auto) 1.8 L [place] % (Auto) 7.9 Eos % (Auto) 0.0 Baso % (Auto) 0.1 Neut # (Auto) 21.4 H Lymph # (Auto) 0.4 L [place] # (Auto) 1.9 H Eos # (Auto) 0.0 Baso # (Auto) 0.0 WBC Differential . Differential Comment Auto diff final PT INR Puncture Site Art line Patient Temperature 98.6 O2 Saturation 99 ABG pH 7.35 L ABG pCO2 37 L ABG pO2 315 H ABG HCO3 20 L ABG O2 Content 20.9 H ABG Base Excess -4.6 L ABG Methemoglobin 0.6 [place] Test Hemoglobin 14.5 Carboxyhemoglobin 0.4 O2 Delivery Device Ventilator Vent Setting See comments Inspired O2 100 Critical Value No Sodium Potassium Chloride Carbon Dioxide Anion Gap BUN Creatinine Estimated GFR Random Glucose Calcium Prot Corrected Calcium Phosphorus Magnesium Total Bilirubin AST ALT Alkaline Phosphatase Ammonia Troponin I Total Protein Albumin Urine Color Urine Clarity Urine pH Ur Specific Elizabeth Urine Protein Urine Glucose (UA) Urine Ketones Urine Occult Blood Urine Nitrate Urine Bilirubin Urine Urobilinogen Ur Leukocyte Esterase Urine RBC Urine WBC Urine Mucus Micro UA Comment Ur Microscopic Review Urine Culture Comments Nasal Screen MRSA (PCR) Not detected Urine Opiates Screen Ur Barbiturates Screen Ur Amphetamines Screen U Benzodiazepines Scrn Urine Cocaine Screen U Cannabinoids Screen 08/16/18 08/16/18 08/16/18 16:35 16:30 15:08 WBC RBC Hgb Hct MCV MCH MCHC RDW Plt Count MPV Neut % (Auto) Lymph % (Auto) [place] % (Auto) Eos % (Auto) Baso % (Auto) Neut # (Auto) Lymph # (Auto) [place] # (Auto) Eos # (Auto) Baso # (Auto) WBC Differential Differential Comment PT 11.4 INR 1.1 Puncture Site Drawn in or Patient Temperature 98.6 O2 Saturation 96 ABG pH 7.35 L ABG pCO2 39 ABG pO2 137 H ABG HCO3 21 L ABG O2 Content 17.8 ABG Base Excess -3.9 L ABG Methemoglobin 1.5 [place] Test Present Hemoglobin 13.1 Carboxyhemoglobin 1.2 O2 Delivery Device Or Vent Setting Inspired O2 Critical Value No Sodium 147 H Potassium 4.5 D Chloride 116 H Carbon Dioxide 22.4 Anion Gap 9 BUN 9 Creatinine 0.84 Estimated GFR Greater than 89 Random Glucose 138 H Calcium 7.3 L* D Prot Corrected Calcium 8.1 L Phosphorus Magnesium 2.4 Total Bilirubin 0.8 AST 29 ALT 18 Alkaline Phosphatase 49 Ammonia Troponin I Total Protein 5.7 L D Albumin 3.3 L D Urine Color Urine Clarity Urine pH Ur Specific Elizabeth Urine Protein Urine Glucose (UA) Urine Ketones Urine Occult Blood Urine Nitrate Urine Bilirubin Urine Urobilinogen Ur Leukocyte Esterase Urine RBC Urine WBC Urine Mucus Micro UA Comment Ur Microscopic Review Urine Culture Comments Nasal Screen MRSA (PCR) Urine Opiates Screen Ur Barbiturates Screen Ur Amphetamines Screen U Benzodiazepines Scrn Urine Cocaine Screen U Cannabinoids Screen 08/16/18 08/16/18 08/16/18 13:46 13:42 13:42 WBC RBC Hgb Hct MCV MCH MCHC RDW Plt Count MPV Neut % (Auto) Lymph % (Auto) [place] % (Auto) Eos % (Auto) Baso % (Auto) Neut # (Auto) Lymph # (Auto) [place] # (Auto) Eos # (Auto) Baso # (Auto) WBC Differential Differential Comment PT INR Puncture Site Patient Temperature O2 Saturation ABG pH ABG pCO2 ABG pO2 ABG HCO3 ABG O2 Content ABG Base Excess ABG Methemoglobin [place] Test Hemoglobin Carboxyhemoglobin O2 Delivery Device Vent Setting Inspired O2 Critical Value Sodium Potassium Chloride Carbon Dioxide Anion Gap BUN Creatinine Estimated GFR Random Glucose Calcium Prot Corrected Calcium Phosphorus Magnesium Total Bilirubin AST ALT Alkaline Phosphatase Ammonia 24 Troponin I Total Protein Albumin Urine Color Straw Urine Clarity Clear Urine pH 6.0 Ur Specific Elizabeth 1.006 Urine Protein Negative Urine Glucose (UA) 500 or greater Urine Ketones 20 Urine Occult Blood Negative Urine Nitrate Negative Urine Bilirubin Negative Urine Urobilinogen Less than 2 Ur Leukocyte Esterase Negative Urine RBC Less than 1 Urine WBC 1 Urine Mucus Few H Micro UA Comment Culture not ind Ur Microscopic Review Not Reportable Urine Culture Comments Culture not ind Nasal Screen MRSA (PCR) Urine Opiates Screen Neg Ur Barbiturates Screen Neg Ur Amphetamines Screen Neg U Benzodiazepines Scrn Pos H Urine Cocaine Screen Neg U Cannabinoids Screen Pos H 08/16/18 08/16/18 13:25 13:25 WBC 26.1 H RBC 5.00 Hgb 14.5 Hct 42.5 MCV 85.0 MCH 29.0 MCHC 34.1 RDW 13.3 Plt Count 234 MPV 9.5 Neut % (Auto) 88.8 H Lymph % (Auto) 3.4 L [place] % (Auto) 7.7 Eos % (Auto) 0.0 Baso % (Auto) 0.1 Neut # (Auto) 23.1 H Lymph # (Auto) 0.9 L [place] # (Auto) 2.0 H Eos # (Auto) 0.0 Baso # (Auto) 0.0 WBC Differential . Differential Comment Auto diff final PT INR Puncture Site Patient Temperature O2 Saturation ABG pH ABG pCO2 ABG pO2 ABG HCO3 ABG O2 Content ABG Base Excess ABG Methemoglobin [place] Test Hemoglobin Carboxyhemoglobin O2 Delivery Device Vent Setting Inspired O2 Critical Value Sodium 141 Potassium 3.7 Chloride 109 H Carbon Dioxide 22.8 Anion Gap 9 BUN 12 Creatinine 1.16 Estimated GFR 70 L Random Glucose 227 H Calcium 8.2 L Prot Corrected Calcium Phosphorus Magnesium 2.1 Total Bilirubin 0.6 AST 23 ALT 20 Alkaline Phosphatase 60 Ammonia Troponin I 0.58 H Total Protein 7.1 Albumin 4.0 Urine Color Urine Clarity Urine pH Ur Specific Elizabeth Urine Protein Urine Glucose (UA) Urine Ketones Urine Occult Blood Urine Nitrate Urine Bilirubin Urine Urobilinogen Ur Leukocyte Esterase Urine RBC Urine WBC Urine Mucus Micro UA Comment Ur Microscopic Review Urine Culture Comments Nasal Screen MRSA (PCR) Urine Opiates Screen Ur Barbiturates Screen Ur Amphetamines Screen U Benzodiazepines Scrn Urine Cocaine Screen U Cannabinoids Screen - Impressions ITS Impressions Chest X-Ray 08/16/18 00:00 CONCLUSION: Minimal left basilar opacity which may represent atelectasis. Endotracheal tube in good position. Cervical Spine CT 08/16/18 13:23 CONCLUSION: 1. Negative trauma CT. 2. The known intraventricular hemorrhage is partially visualized. Please see head CT report for further details. Head CT 08/16/18 13:23 CONCLUSION: 1. Large intraparenchymal hemorrhage intraventricular spread of hemorrhage and mild subarachnoid hemorrhage. Etiologies include middle cerebral artery aneurysm given the location of the hemorrhage. Findings called to Dr. Marquez in the emergency room at 1333 hours. Discharge Plan - Discharge Disposition Patient Disposition: 20 - Discharge Details Date/Time: 08/17/18 11:04 - Physicians Team Primary Care Provider: UNKNOWN, Attending Provider: Raza Alberto Other Providers: Caesar Ramos MD
--- NOTE | 2018-08-17 16:47 | ECG ---
Date Performed: 08/16/2018 Time Performed: 13:57:10 PTAGE: 38 years EKG: Sinus rhythm WITH FIRST DEGREE AV BLOCK POSSIBLE LEFT ATRIAL ENLARGEMENT POSSIBLE RIGHT VENTRICULAR CONDUCTION DE LAY ST DEPRESSION, CONSIDER SUBENDOCARDIAL INJURY ABNORMAL ECG NO PREVIOUS TRACING DOCTOR: Makenzie Menjivar Interpretating Date/Time 08/17/2018 16:42:30
== END 2018-08-17 12:40 | disposition expired ==
LOC: NEPE 13:14 → NEDA 13:57 → N03 16:00
PROVIDERS: ADMIT Surgery Surgical Critical Care; ATTEND Surgery Surgical Critical Care